=== PATIENT | female | born 1975 | race Caucasian/White ===

== ENCOUNTER 2023-08-27 15:43 | Emergency (ER) | payer OTHER, SELFPAY ==
[2023-08-27] VITALS (7 sets, daily range): BP systolic 161–193; BP diastolic 96–110; PULSE 86–102; RESP 16–18; TEMP 37.2; O2SAT 97–100; BMI 38.7
--- NOTE | 2023-08-27 15:59 | ED_ITS ---
HPI - General Adult General Chief complaint: Dizziness Stated complaint: dizzy/high blood press/sent fr urgent care Time Seen by Provider: 08/27/23 17:41 Source: patient Mode of arrival: ambulatory Limitations: no limitations History of Present Illness HPI narrative: Patient is a 48-year-old female who presents emergency department from urgent care today for evaluation. She reports for the past 3 days she has been feeling slightly dizzy described as being off balance. She noticed a mild increase in it today. Her ex- had presented to her home to picket labor union their child, he works in the medical field, she asked him to take her blood pressure and it was elevated 160/100. She has a remote history of hypertension reportedly 20 years ago due to a high stress job, was never medicated for this, ultimately left the job and never had issues with hypertension since then. She was last evaluated by primary care doctor 1.5-2 years ago and states no hypertension then. She denies fevers, chills, vision changes, neck pain, chest pain, shortness of breath, nausea vomiting, abdominal pain, numbness or tingling of the extremities, unsteady gait. Related Data Previous Rx's Medication Instructions Recorded amlodipine 5 mg tablet 5 mg PO DAILY #30 tabs 08/27/23 Allergies Allergy/AdvReac Type Severity Reaction Status Date / Time azithromycin Allergy Vomiting Verified 08/27/23 15:53 Penicillins [PCN] Allergy Hives Verified 08/27/23 15:53 Sulfa (Sulfonamide Allergy Hives Verified 08/27/23 15:53 Antibiotics) Review of Systems 2 Review of Systems: Yes all other systems are reviewed and are negative PMFSH Past Medical History Attestation statement: The following information was validated with the patient. Source: old records reviewed Social History Social History Alcohol intake: never Smoked in Last 30 Days: No Use of substances other than those prescribed or required for medical reasons: No Advance Directives: No Advance Directives Information Provided: Yes Physical Exam ED Vital Signs: Vital Signs - 24 hr 08/27/23 15:54 08/27/23 17:21 08/27/23 17:26 Temperature 98.9 F Pulse Rate 93 94 102 H Respiratory Rate 18 Blood Pressure 188/97 H 193/105 H 184/110 H Pulse Oximetry 100 Oxygen Delivery Method Room Air 08/27/23 17:28 08/27/23 18:00 08/27/23 19:50 Temperature Pulse Rate 98 86 90 Respiratory Rate 18 16 Blood Pressure 161/103 H 173/96 H 173/96 H Pulse Oximetry 97 97 Oxygen Delivery Method Room Air Room Air 08/27/23 20:00 Temperature Pulse Rate 93 Respiratory Rate Blood Pressure 180/103 H Pulse Oximetry 99 Oxygen Delivery Method BMI result Body Mass Index 38.7 Appearance: Alert.?Oriented to person, place and time. No acute distress.?Normal affect. Eyes: Pupils equal, round and reactive to light.? ENT: Pharynx normal.?? Neck: Normal inspection.? Neck supple.?? CVS: Heart sounds normal. Normal heart rate and rhythm.? Pulses normal.?? Respiratory: No respiratory distress.? Lung sounds clear to auscultation bilaterally?? Abdomen: Soft and non-tender. Normoactive bowel sounds. ? Skin: Skin warm and dry.? Normal skin color.? Extremities: No lower extremity edema.? No calf ttp? Neuro: Moves all extremities spontaneously. Sensation intact bilaterally. CN II- XII intact. No focal neuro deficits. Ambulates with normal steady gait. Course Course Course Narrative: RME: 48-year-old female presents to ED describing dizziness as off balance. Patient denies any stroke-like symptoms. Blood pressure 180/97. Patient denies any known history of high blood pressure. Patient states no chest pain or shortness of breath. Negative for any neuro deficits. NIH score is 0. Labs EKG ordered. Medications Administered Discontinued Medications Generic Name Dose Route Start Last Admin Trade Name Freq PRN Reason Stop Dose Admin Amlodipine Besylate 5 mg 08/27/23 17:52 08/27/23 18:17 Amlodipine Besylate 5 Mg Tablet PO 08/27/23 17:53 5 mg ONCE ONE Administration Protocol Sodium Chloride 1,000 mls @ 999 mls/hr 08/27/23 18:00 08/27/23 21:53 Ns IV 08/27/23 19:00 Infused .Q1H1M MALA Infusion Medical Decision Making Medical Decision Making [facility] Narrative: Patient is a 48-year-old female who presents emergency department for evaluation of dizziness and hypertension as per HPI. At the time my examination she appears overall well, nontoxic, afebrile. She is noted to be hypertensive and mildly tachycardic with pulse 95-110. She does have orthostatic hypertension notably from sitting to standing with a drop in SBP by 23 points and was symptomatic. She has not on any home medications that would cause orthostatic hypotension, telemetry without evidence of arrhythmias, EKG revealing normal sinus rhythm with ventricular rate of 83, QTC 425, no ST elevation, no ST depression, no evidence of arrhythmia or acute ischemic changes, clinically does not appear volume depleted, but she does admit that she has had decreased water intake recently. CBC and CMP are overall unremarkable, BNP within normal range, hCG negative. Will treat with 1 L normal saline IV fluid, in addition to amlodipine 5 mg orally for hypertension, disposition pending results. BP improved with amlodipine, after receiving fluids felt much better, dizziness has resolved. Ambulatory with a steady gait. Remains without focal neurological deficits. Stable for discharge home, sent prescription for amlodipine to pharmacy, outpatient follow-up with PCP. Discussed strict return precautions. All questions answered. Differential Diagnosis Differential Diagnoses: The differential diagnosis associated with the presentation includes (Orthostatic hypotension, arrhythmia, uncontrolled hypertension,, anemia, NIH stroke score 0 do not suspect posterior circulation stroke) Admission/Observation Consideration of admission/observation: Escalation of care including admission/observation considered (See narrative above in course narrative for further detail) Lab Data MDM Lab Attestation statement: I reviewed the patient's lab results. (See narrative above) 08/27/23 16:07 08/27/23 16:07 Labs: Lab Results 08/27/23 08/27/23 Range/Units 16:07 19:43 WBC 7.7 (4.8-10.8) X10*3/uL RBC 4.76 (4.20-5.50) X10*6/uL Hgb 13.4 (12.0-16.0) g/dl Hct 39.9 (37.0-47.0) % MCV 83.8 (80.0-98.0) fL MCH 28.2 (27.0-33.0) pg MCHC 33.6 (31.0-35.0) g/dl RDW 12.5 (11.0-16.0) % Plt Count 359 (160-400) X10*3/uL MPV 8.8 L (9.4-12.3) fL Immature Gran % (Auto) 0.1 (0.0-0.4) % Neut % (Auto) 66.8 (45-73) % Lymph % (Auto) 24.3 (20-40) % [place] % (Auto) 8.3 (2-11) % Eos % (Auto) 0.1 (0-4) % Baso % (Auto) 0.4 (0-2) % Lymph # (Auto) 1.9 (1.2-4.9) X10*3/uL [place] # (Auto) 0.6 (0.1-1.2) X10*3/uL Eos # (Auto) 0.0 (0.0-0.4) X10*3/uL Baso # (Auto) 0.0 (0.0-0.2) X10*3/uL Abs Immat Gran (auto) 0.01 (0.00-0.03) X10*3/uL Absolute Neuts (auto) 5.1 (2.0-8.3) x10*3/uL Absolute Nucleated RBC 0.000 (0.0-0.012) X10*3/uL Nucleated RBC % (auto) 0.0 (0.0-0.2) /100WBC PT 11.2 (11.1-13.3) SEC INR 0.9 (0.9-1.1) APTT 31.4 (26.0-36.8) SEC Sodium 140 (135-145) mmol/L Potassium 3.9 (3.3-5.1) mmol/L Chloride 106 (96-108) mmol/L Carbon Dioxide 24 (22-29) mmol/L Anion Gap 14 (12-20) BUN 14 (9-16) mg/dL Creatinine 0.84 (0.5-1.4) mg/dL Estim Creat Clear Calc 121.0 Estimated GFR > 60 Random Glucose 105 (60-115) mg/dL Calcium 9.4 (8.4-10.2) mg/dL Total Bilirubin 0.3 (0.0-1.0) mg/dL AST 18 (5-31) U/L ALT 17 (0-31) U/L Alkaline Phosphatase 90 (39-117) U/L Troponin I High Sens < 2.7 (<3.5-17.0) ng/L B-Natriuretic Peptide 11 (<100) pg/mL Total Protein 7.3 (6.5-8.0) g/dL Albumin 4.3 (3.5-5.0) g/dL Beta HCG, Quant < 2 mIU/mL Urine Color Yellow Urine Appearance Cloudy Urine pH 6.5 (5.0-9.0) Ur Specific [place] 1.010 (1.005-1.025) Urine Protein Negative (Neg-Trace) mg/dL Urine Glucose (UA) Negative (Negative) mg/dL Urine Ketones Negative (Negative) mg/dL Urine Blood Large (3+) H (Negative) Urine Nitrite Negative (Negative) Ur Leukocyte Esterase Trace H (Negative) Urine RBC 11-20 H (0-2) /HPF Urine WBC 0-5 (0-5) /HPF Ur Squamous Epith Cells 6-10 (0-2) /HPF Urine Bacteria 1+ (None Seen) Hyaline Casts 0-2 (0-2) /LPF Urine Test NEGATIVE (NEGATIVE) Independent Interpretation I performed an independent interpretation of an: EKG (See narrative above) Prescription Management I considered prescription management with: Other (Antihypertensive) Critical Care Time Critical Care Time Critical Care Time: Yes Total Critical Care Time: 40 Attestation: I personally attest to this critical care time spent taking care of the patient exclusive of all other billable procedures was approximately 40 minutes including initial evaluation of patient, ordering tests, EKG interpretation, medical consultation, documentation, re-evaluation. Discharge Plan Discharge Clinical Impression: Hypertension Patient Disposition: Home, Self-Care Instructions: Heart Healthy Diet (ED), Hypertension (ED) Additional Instructions: A new prescription for amlodipine, blood pressure medication was sent to your pharmacy. Begin taking this tomorrow as you received the 1st dose while in the emergency department. You should purchase a automated blood pressure cuff to the you can monitor blood pressure readings at home and present these to your new primary care provider. You may return back to emergency department any new or worsening symptoms or concerns. Please be sure to change position slowly, stay well hydrated, and follow a heart healthy diet. Prescriptions: New amlodipine 5 mg tablet 5 mg PO DAILY Qty: 30 0RF Referrals: Rocío Pop PA [Primary Care Provider] - Interventions: ED Discharge Assessment Last Done: 08/27/23 22:01 Discharge Date/Time: 08/27/23 22:03
--- NOTE | 2023-08-27 16:00 | ECG_ITS ---
Test Reason : DIZZINESS Blood Pressure : / mmHG Vent. Rate : 083 BPM Atrial Rate : 083 BPM P-R Int : 140 ms QRS Dur : 080 ms QT Int : 362 ms P-R-T Axes : 035 023 036 degrees QTc Int : 425 ms Normal sinus rhythm Normal ECG When compared with ECG of 14-MAR-2009 16:39, No significant change was found Referred By: Trevon Cano Electronically Signed By:PAULY BROUSSARD MD
[2023-08-27 16:21] LABS: MANUAL DIFF FLAG NO
[2023-08-27 16:25] LABS: Basophils Percent Auto 0.4 % (0-2); Eosinophils Percent Auto 0.1 % (0-4); Hematocrit 39.9 % (37.0-47.0); Hemoglobin 13.4 g/dl (12.0-16.0); Imm Gran Abs Auto 0.01 X10*3/uL (0.00-0.03); Imm Gran Pct Auto 0.1 % (0.0-0.4); Lymphocytes Absolute Auto 1.9 X10*3/uL (1.2-4.9); Lymphocytes Percent Auto 24.3 % (20-40); Mean Corpuscular HGB Conc 33.6 g/dl (31.0-35.0); Mean Corpuscular Hemoglobin 28.2 pg (27.0-33.0); Mean Corpuscular Volume 83.8 fL (80.0-98.0); Mean Platelet Volume 8.8 fL (9.4-12.3); Monocytes Absolute Auto 0.6 X10*3/uL (0.1-1.2); Monocytes Percent Auto 8.3 % (2-11); Neutrophils Absolute Auto 5.1 x10*3/uL (2.0-8.3); Neutrophils Percent Auto 66.8 % (45-73); Platelet Count 359 X10*3/uL (160-400); Red Blood Count 4.76 X10*6/uL (4.20-5.50); Red Cell Distribution Width 12.5 % (11.0-16.0); White Blood Count 7.7 X10*3/uL (4.8-10.8)
[2023-08-27 16:31] LABS: INTERNATIONAL NORM RATIO 0.9 (0.9-1.1); Prothrombin Time 11.2 SEC (11.1-13.3)
[2023-08-27 16:33] LABS: Partial Thromboplastin Time 31.4 SEC (26.0-36.8)
[2023-08-27 16:46] LABS: B Type Natriuretic Peptide 11 pg/mL (<100)
[2023-08-27 16:47] LABS: Alanine Aminotransferase 17 U/L (0-31); Albumin Level 4.3 g/dL (3.5-5.0); Alkaline Phosphatase 90 U/L (39-117); Anion Gap 14 (12-20); Aspartate Amino Transferase 18 U/L (5-31); Bilirubin Total 0.3 mg/dL (0.0-1.0); Blood Urea Nitrogen 14 mg/dL (9-16); Calcium 9.4 mg/dL (8.4-10.2); Carbon Dioxide 24 mmol/L (22-29); Chloride 106 mmol/L (96-108); Estimated Glomerular Filt Rate > 60; Glucose Random 105 mg/dL (60-115); Potassium 3.9 mmol/L (3.3-5.1); Sodium 140 mmol/L (135-145); Total Protein 7.3 g/dL (6.5-8.0)
[2023-08-27 16:49] LABS: HCG Quantitative < 2 mIU/mL; Troponin-I High Sensitivity < 2.7 ng/L (<3.5-17.0)
[2023-08-27] MEDS: amLODIPine Besylate 5 MG TABLET PO (18:17)
[2023-08-27] MEDS: 0.9 % Sodium Chloride 1,000 ML 999 ML IV (18:21)
[2023-08-27 19:59] LABS: Urine Pregnancy NEGATIVE (NEGATIVE)
[2023-08-27 20:00] LABS: Appearance Urine Cloudy; Color Urine Yellow; Glucose Urine UA Negative (Negative); Leukocyte Esterase Urine Trace (Negative); Nitrite Urine Negative (Negative); PH 6.5 (5.0-9.0); UMIC TRIGGER UACC YES; UPreg QC Valid YES; Urine Blood Large (3+) (Negative); Urine Ketones Negative (Negative); Urine Protein Negative (Neg-Trace)
[2023-08-27 20:16] LABS: Bacteria Urine 1+ (None Seen); Hyaline Casts Urine 0-2 /LPF (0-2); WBC Urine 0-5 /HPF (0-5)
--- NOTE | 2023-08-27 22:02 | PC.NURSE ---
SHIRLENE Ewing aware of last VS before discharge. 180/103. NO further orders, continue with discharge.
== END 2023-08-27 22:03 | disposition home or self-care (01) ==
PROVIDERS: Physician Assistant; Emergency Provider Emergency Medicine Emergency Medical Services; PCP Physician Assistant
DX: R42 Dizziness and giddiness (principal); I10 Essential (primary) hypertension; Z79.899 Other long term (current) drug therapy
CPT/HCPCS: 36415; 80053; 81001; 81025; 83880; 84484; 84702; 85025; 85610; 85730; 93005; 96360; 96361; 99285

== ENCOUNTER → 2023-08-27 16:00 | Outpatient (BNV) | payer OTHER, SELFPAY | PROVIDERS: Emergency Provider Emergency Medicine Emergency Medical Services; PCP Physician Assistant; Visit Provider Internal Medicine Cardiovascular Disease | DX: R42 Dizziness and giddiness (principal) | CPT/HCPCS: 93010 ==

== ENCOUNTER 2023-11-02 14:33 | Inpatient (IN) | payer OTHER, SELFPAY ==
[2023-11-02] VITALS (10 sets, daily range): BP systolic 129–178; BP diastolic 76–100; PULSE 89–110; RESP 12–20; TEMP 37.3–37.4; O2SAT 82–95; BMI 36.3
--- NOTE | ~2023-11-02 | XR_ITS ---
EXAMINATION: XR CHEST CLINICAL INFORMATION: SOB, cough COMPARISON: Chest radiograph 03/14/2009 TECHNIQUE: 2 views of the chest were obtained. FINDINGS: The lungs are well expanded. Right lower lobe consolidation. Small right pleural effusion is possible. The left lung is clear. No pulmonary edema or pneumothorax. Cardiomediastinal silhouette is within normal limits for technique. No acute osseous abnormality. XR/XR chest 2V IMPRESSION: Right lower lobe consolidation, suspicious for lobar pneumonia.
--- NOTE | 2023-11-02 14:48 | ED.GENADULT ---
HPI - General Adult General Chief complaint: Dyspnea Stated complaint: sob Time Seen by Provider: 11/02/23 16:14 Source: patient, RN notes reviewed and old records reviewed Mode of arrival: ambulatory Limitations: no limitations History of Present Illness HPI narrative: 48-year-old female past medical history significant for hypertension presents for evaluation of flu-like symptoms. Patient reports that she started about a week ago feeling unwell. She then developed a cough and has had fevers. She reports her fevers have resolved However now she feels short of breath especially with exertion She is coughing persistently She states that she feels ?like I can hear some junk on the right side of my chest. ? She has a nonsmoker Related Data Previous Rx's ?Medication ?Instructions ?Recorded amlodipine 5 mg tablet 5 mg PO DAILY #30 tabs 08/27/23 Allergies Allergy/AdvReac Type Severity Reaction Status Date / Time azithromycin Allergy Vomiting Verified 11/02/23 14:53 Penicillins [PCN] Allergy Hives Verified 11/02/23 14:53 Sulfa (Sulfonamide Allergy Hives Verified 11/02/23 14:53 Antibiotics) Review of Systems Constitutional: Constitutional: Reports body ache(s), Reports chills, Denies fever(s), Reports malaise and Reports weakness Eyes: Eyes: Denies blurry vision Cardiovascular: Cardiovascular: Denies chest pain, Reports dyspnea and Reports dyspnea on exertion Respiratory: Respiratory: Reports cough, Reports dyspnea and Reports dyspnea on exertion Gastrointestinal: Gastrointestinal: Denies abdominal pain, Denies nausea and Denies vomiting Musculoskeletal: Musculoskeletal: Denies back pain Integumentary/Breasts: Skin/Breast: Denies rash Neurologic: Reports weakness PMFSH Social History Social History Alcohol intake: never Smoked in Last 30 Days: No Use of substances other than those prescribed or required for medical reasons: No Advance Directives: No Advance Directives Information Provided: No Do you have a plan to hurt others: No Plan Patient : No Physical Exam ED Vital Signs: Vital Signs - 24 hr 11/02/23 14:42 11/02/23 15:05 11/02/23 15:46 Temperature 99.1 F Pulse Rate 110 H 100 97 Respiratory Rate 20 20 18 Blood Pressure 178/100 H 147/91 H 141/82 H Pulse Oximetry 91 L 94 92 Oxygen Delivery Method Room Air Room Air Room Air 11/02/23 16:28 11/02/23 17:03 11/02/23 18:02 Temperature 99.2 F Pulse Rate 90 94 Respiratory Rate 16 19 Blood Pressure 129/77 Pulse Oximetry 95 82 L Oxygen Delivery Method Room Air BMI result Body Mass Index 36.3 Const General: healthy appearing, comfortable, no acute distress, alert and awake Nutritional Appearance: well nourished Orientation/consciousness: patient oriented x3 HENMT Head: Yes normocephalic and Yes atraumatic Eyes Eyelids: Yes eyelids normal Conjunctivae: conjunctivae normal Sclerae: sclerae normal Corneas: corneas normal Pupils: Equal, round and reactive pupils present EOM: EOMs intact bilaterally Neck Neck: Yes full ROM Resp Other: Right lower lobe rhonchi Effort & Inspection: normal respiratory effort, able to speak in complete sentences and not labored GI Inspection: No distended Palpation (GI): Soft to palpation, not firm, nontender, no guarding and not rigid Skin General skin exam: elasticity normal Neuro General: patient oriented x3 Cranial nerves: Yes Equal, round and reactive pupils present and Yes Bilaterally intact EOM present Cognition (Neuro): normal cognition Extrem Other: Moving all extremities well without any obvious deformities Course Course Course Narrative: RME performed by Aby Balderrama PA-C. Patient is a 48 year old assigned female at presenting to the emergency department with a cough and sore throat. Detailed physical exam and review of systems are deferred to the cardio clinician. Imaging and swabs ordered. Patient placed back in the waiting room pending room availability and results. Medications Administered Discontinued Medications Generic Name Dose Route Start Last Admin Trade Name Freq PRN Reason Stop Dose Admin Albuterol Sulfate 2.5 mg/ 0 mg 11/02/23 17:00 11/02/23 17:02 Albuterol/Ipratropium 3 ml INHALE 11/02/23 17:01 1 dose ONCE ONE Administration Sodium Chloride 1,000 mls @ 999 mls/hr 11/02/23 16:30 11/02/23 16:52 Ns IV 11/02/23 17:30 999 mls/hr .Q1H1M MALA Administration Ceftriaxone Sodium 1 gm/ 50 mls @ 100 mls/hr 11/02/23 16:29 11/02/23 17:27 Sodium Chloride IV 11/02/23 16:58 Infused ONCE ONE Infusion Doxycycline Hyclate 100 mg/ 250 mls @ 166.67 mls/hr 11/02/23 16:30 11/02/23 17:27 Sodium Chloride IV 11/02/23 17:59 166.67 mls/hr ONCE ONE Administration Medical Decision Making Medical Decision Making [facility] Narrative: 58-year-old female with past medical history significant for hypertension presents for evaluation of cough shortness of breath, body aches. Her chest x-ray shows a significant right lower lobe pneumonia. Her oxygen saturations have been 92% or better since arrival. She did have a temperature of 99.9?. She is not tachycardic. Plan to check basic labs. We will treat with ceftriaxone and doxycycline given azithromycin allergy. Patient would like to be discharged home. Given that she has not hypoxic, after her antibiotics have completed an is long as there was no significant abnormalities on her labs we will take her for an ambulation trial with oxygen saturation monitoring Differential Diagnosis Differential Diagnoses: The differential diagnosis associated with the presentation includes Community-acquired pneumonia Influenza Viral syndrome Upper respiratory infection Admission/Observation Consideration of admission/observation: Escalation of care including admission/observation considered Consider admission for right lower lobe pneumonia Lab Data [facility] Lab Attestation statement: I reviewed the patient's lab results. No leukocytosis. The patient has no significant anemia. Her potassium is just below normal at 3.2, no other electrolyte abnormalities. Glucose is slightly elevated to 164, but this is a random sample. There is no evidence of DKA. 11/02/23 16:46 11/02/23 16:46 Labs: Lab Results 11/02/23 11/02/23 Range/Units 15:13 16:46 WBC 6.0 (4.8-10.8) X10*3/uL RBC 4.56 (4.20-5.50) X10*6/uL Hgb 12.5 (12.0-16.0) g/dl Hct 36.9 L (37.0-47.0) % MCV 80.9 (80.0-98.0) fL MCH 27.4 (27.0-33.0) pg MCHC 33.9 (31.0-35.0) g/dl RDW 12.3 (11.0-16.0) % Plt Count 326 (160-400) X10*3/uL MPV 8.4 L (9.4-12.3) fL Immature Gran % (Auto) 0.3 (0.0-0.4) % Neut % (Auto) 66.5 (45-73) % Lymph % (Auto) 20.2 (20-40) % [place] % (Auto) 11.9 H (2-11) % Eos % (Auto) 0.8 (0-4) % Baso % (Auto) 0.3 (0-2) % Lymph # (Auto) 1.2 (1.2-4.9) X10*3/uL [place] # (Auto) 0.7 (0.1-1.2) X10*3/uL Eos # (Auto) 0.1 (0.0-0.4) X10*3/uL Baso # (Auto) 0.0 (0.0-0.2) X10*3/uL Abs Immat Gran (auto) 0.02 (0.00-0.03) X10*3/uL Absolute Neuts (auto) 4.0 (2.0-8.3) x10*3/uL Absolute Nucleated RBC 0.000 (0.0-0.012) X10*3/uL Nucleated RBC % (auto) 0.0 (0.0-0.2) /100WBC Sodium 138 (135-145) mmol/L Potassium 3.2 L (3.3-5.1) mmol/L Chloride 98 (96-108) mmol/L Carbon Dioxide 28 (22-29) mmol/L Anion Gap 15 (12-20) BUN 10 (9-16) mg/dL Creatinine 0.76 (0.5-1.4) mg/dL Estim Creat Clear Calc 125.3 Estimated GFR > 60 Random Glucose 164 H (60-115) mg/dL Lactic Acid 1.0 (0.5-2.0) mmol/L Calcium 8.9 (8.4-10.2) mg/dL Total Bilirubin 0.4 (0.0-1.0) mg/dL AST 51 H (5-31) U/L ALT 62 H (0-31) U/L Alkaline Phosphatase 109 (39-117) U/L Total Protein 7.0 (6.5-8.0) g/dL Albumin 3.9 (3.5-5.0) g/dL Lipase 21 (8-78) U/L Influenza Type A (PCR) NEGATIVE (Negative) Influenza Type B (PCR) NEGATIVE (Negative) RSV RNA Qual (PCR) NEGATIVE (Negative) SARS-CoV-2 RNA (RT-PCR) NEGATIVE (Negative) S. pyogenes GrpA IVAN Negative (Negative) Independent Interpretation I performed an independent interpretation of an: Plain X-Ray (Significant right lower lobe consolidation suspicious for pneumonia) Radiology Impression Discussion of test interpretation with radiology: I have reviewed the radiologist's reading. Radiologist Impression: IMPRESSION: Right lower lobe consolidation, suspicious for lobar pneumonia. Discharge Plan Discharge Clinical Impression: Community acquired pneumonia Patient Disposition: Admitted As Inpatient Prescriptions: No Action amlodipine 5 mg tablet 5 mg PO DAILY Qty: 30 0RF Print Language: Mac[place]
--- NOTE | 2023-11-02 15:15 | PC.NURSE ---
swabs obtained/sent to lab by tech.
[2023-11-02 15:27] LABS: IDNOW Serial# 08D9AD1C; Strep A Nucleic Acid Negative (Negative)
--- NOTE | 2023-11-02 15:35 | PC.NURSE ---
pt to xray at this time.
[2023-11-02 15:58] LABS: Influenza A PCR NEGATIVE (Negative); Influenza B PCR NEGATIVE (Negative); Resp Syncy Virus RNA Qual PCR NEGATIVE (Negative); SARS COV2 PCR INHOUSE NEGATIVE (Negative)
[2023-11-02] MEDS: cefTRIAXone sodium 1 GM in 0.9 % Sodium Chloride 50 ML IV (16:51)
[2023-11-02 16:52] LABS: MANUAL DIFF FLAG NO
[2023-11-02] MEDS: 0.9 % Sodium Chloride 1,000 ML 999 ML IV (16:52)
[2023-11-02 16:58] LABS: Basophils Percent Auto 0.3 % (0-2); Eosinophils Absolute Auto 0.1 X10*3/uL (0.0-0.4); Eosinophils Percent Auto 0.8 % (0-4); Hematocrit 36.9 % (37.0-47.0); Hemoglobin 12.5 g/dl (12.0-16.0); Imm Gran Abs Auto 0.02 X10*3/uL (0.00-0.03); Imm Gran Pct Auto 0.3 % (0.0-0.4); Lymphocytes Absolute Auto 1.2 X10*3/uL (1.2-4.9); Lymphocytes Percent Auto 20.2 % (20-40); Mean Corpuscular HGB Conc 33.9 g/dl (31.0-35.0); Mean Corpuscular Hemoglobin 27.4 pg (27.0-33.0); Mean Corpuscular Volume 80.9 fL (80.0-98.0); Mean Platelet Volume 8.4 fL (9.4-12.3); Monocytes Absolute Auto 0.7 X10*3/uL (0.1-1.2); Monocytes Percent Auto 11.9 % (2-11); Neutrophils Percent Auto 66.5 % (45-73); Platelet Count 326 X10*3/uL (160-400); Red Blood Count 4.56 X10*6/uL (4.20-5.50); Red Cell Distribution Width 12.3 % (11.0-16.0)
[2023-11-02] MEDS: Albuterol Sulfate 2.5 MG, Albuterol/Iprat 2.5/0.5MG 3 ML 3 ML INHALE (17:02)
[2023-11-02 17:12] LABS: Alanine Aminotransferase 62 U/L (0-31); Albumin Level 3.9 g/dL (3.5-5.0); Alkaline Phosphatase 109 U/L (39-117); Anion Gap 15 (12-20); Aspartate Amino Transferase 51 U/L (5-31); Bilirubin Total 0.4 mg/dL (0.0-1.0); Blood Urea Nitrogen 10 mg/dL (9-16); Calcium 8.9 mg/dL (8.4-10.2); Carbon Dioxide 28 mmol/L (22-29); Chloride 98 mmol/L (96-108); Creatinine Clr Calc Pharmacy 125.3; Estimated Glomerular Filt Rate > 60; Glucose Random 164 mg/dL (60-115); Lipase 21 U/L (8-78); Potassium 3.2 mmol/L (3.3-5.1); Sodium 138 mmol/L (135-145)
[2023-11-02] MEDS: Doxycycline Hyclate 100 MG in 0.9 % Sodium Chloride 250 ML 166.67 MG IV (17:27)
--- NOTE | 2023-11-02 18:02 | PC.NURSE ---
o2 sats 82-84% on RA when ambulating. pt denied difficulty ambulating and appeared well while ambulating. sats up to 91-93% on RA upon sitting and now 95% on RA. Brendan GARBER aware.
--- NOTE | 2023-11-02 18:13 | PM.IMHP ---
History of Present Illness Date of Service: 11/02/23 Attending physician on admission: Lashonda Simon Chief Complaint: sob 48 year old female with history of htn presented to the ED earlier today for evaluation of dyspnea. The patient reports 1 week ago developed onset of fevers up to 102 with chills, malaise, fatigue, myalgias, and anorexia. States her son was sick with similar symptoms. States symptoms improved about 2 days ago but then developed cough with yellow sputum production and dyspnea on exertion so presented to the ED for further evaluation. On arrival, vital signs stable though initially tachycardic to 110. No hypoxia on room air but with exertion, desaturates 82% on room air. There is no leukocytosis. Renal function electrolyte levels normal except for mild hypokalemia of 3.2. She is negative for COVID-19, RSV, influenza, and strep a. Chest x-ray shows right lower lobe pneumonia. In the ED, has been treated with IV ceftriaxone, doxycycline. She will be admitted for further management of community-acquired pneumonia with exercise hypoxemia. Review of Systems Review of Systems: General: +fever, +malaise, +chills. No unintentional weight loss HEENT: No blurred vision, diplopia. No sore throat, nasal congestion, rhinorrhea, sinus pain, ear pain Cardiovascular: No chest pain, palpitations, or leg edema Respiratory: +cough, +[place]. No wheezing GI: No abdominal pain, nausea, vomiting, diarrhea, constipation, melena, hematochezia : No dysuria, hematuria, increased urinary frequency, decreased urinary output MSK: +myalgia. No back pain Neuro: No headaches, weakness, paresthesias Skin: No rashes or lesions REPLACED BY [facility] Medical History (Updated 11/02/23 @ 18:48 by SHIRLENE Gaspar) Hypertension Social History Alcohol intake: never Smoked in Last 30 Days: No Use of substances other than those prescribed or required for medical reasons: No Advance Directives: No Advance Directives Information Provided: No Do you have a plan to hurt others: No Plan Patient : No Meds Allergies Allergy/AdvReac Type Severity Reaction Status Date / Time azithromycin Allergy Vomiting Verified 11/02/23 14:53 Penicillins [PCN] Allergy Hives Verified 11/02/23 14:53 Sulfa (Sulfonamide Allergy Hives Verified 11/02/23 14:53 Antibiotics) Physical Exam Vital Signs and Narrative: Vital Signs: Last Vital Signs Temp 99.2 F 11/02/23 16:28 Pulse 94 11/02/23 17:03 Resp 19 11/02/23 17:03 BP 129/77 11/02/23 16:28 Pulse Ox 82 L 11/02/23 18:02 O2 Del Method Room Air 11/02/23 16:28 BMI result Body Mass Index 36.3 Constitutional - Awake and Alert, No apparent distress Eyes - PERRLA, EOMI Cardiovascular - S1S2, RRR, No edema Respiratory - Normal lung expansion, Normal respiratory effort, No respiratory distress, diminished RLL, otherwise cta Gastrointestinal - NT / ND; +BS; No rebound or guarding Extremities - no calf tenderness bilaterally, no swelling Skin - Warm/Dry Neurological - Alert & oriented x3 Psychological - Appropriate affect Results Labs 11/02/23 16:46 11/02/23 16:46 Labs: Laboratory Results - last 24 hr 11/02/23 11/02/23 15:13 16:46 MCV 80.9 MCH 27.4 MCHC 33.9 RDW 12.3 Plt Count 326 MPV 8.4 L Immature Gran % (Auto) 0.3 Neut % (Auto) 66.5 Lymph % (Auto) 20.2 [place] % (Auto) 11.9 H Eos % (Auto) 0.8 Baso % (Auto) 0.3 Lymph # (Auto) 1.2 [place] # (Auto) 0.7 Eos # (Auto) 0.1 Baso # (Auto) 0.0 Abs Immat Gran (auto) 0.02 Absolute Neuts (auto) 4.0 Absolute Nucleated RBC 0.000 Nucleated RBC % (auto) 0.0 Anion Gap 15 Estim Creat Clear Calc 125.3 Estimated GFR > 60 Random Glucose 164 H Lactic Acid 1.0 Calcium 8.9 Total Bilirubin 0.4 AST 51 H ALT 62 H Alkaline Phosphatase 109 Total Protein 7.0 Albumin 3.9 Lipase 21 Influenza Type A (PCR) NEGATIVE Influenza Type B (PCR) NEGATIVE RSV RNA Qual (PCR) NEGATIVE SARS-CoV-2 RNA (RT-PCR) NEGATIVE S. pyogenes GrpA IVAN Negative Imaging Radiologist's Impressions: Impressions Chest X-Ray 11/02/23 15:42 IMPRESSION: Right lower lobe consolidation, suspicious for lobar pneumonia. Assessment and Plan (1) Community acquired pneumonia: Status: Acute Plan 48 year old female with history of htn admitted for further management of community acquired pneumonia with exercise hypoxemia #RLL pneumonia with exercise hypoxemia -cxr shows RLL consolidation. No leukocytosis, no sepsis -iv ctx and doxycyline (initiated 11/01) -check strep pneumo ag, legionella ag, sputum culture, hiv ab (given pneumonia in otherwise healthy young person) -symptomatic management -monitor for hypoxia -admit to med surg #htn -continue amlodipine dvt prophylaxis- lovenox full code given expercise hypoxemia related to RLL pneumonia, pt will require inpt stay at least 2 midnights for iv abx and close monitoring or vital signs Quality Stroke Does the patient have a stroke diagnosis?: No VTE Prior VTE?: No VTE Risk Level:: Medical - moderate - high VTE Device Contraindication: Treatment Not Indicated VTE Drug Contraindication: N/A - Med Ordered
--- NOTE | 2023-11-02 18:51 | PHA.MEDREC ---
Pharmacy Consult ? Medication Reconciliation Pharmacy has completed the medication reconciliation. spoke with patient to confirm.
[2023-11-02] MEDS: Potassium Chloride Packet 20 MEQ PACKET 40 MEQ PO (20:11)
[2023-11-02] MEDS: amLODIPine Besylate 5 MG TABLET PO (20:11)
[2023-11-03 01:15] VITALS: PULSE 82; RESP 17; O2SAT 95
[2023-11-03] MEDS: 0.9 % Sodium Chloride Flush 3 ML SYRINGE IVFLUSH ×4 (01:43→23:40)
[2023-11-03 01:44] VITALS: BMI 37.3
[2023-11-03 01:47] VITALS: BP 145/80; PULSE 91; RESP 20; TEMP 36.4; O2SAT 93
[2023-11-03] MEDS: Doxycycline Hyclate 100 MG in 0.9 % Sodium Chloride 250 ML 166.67 MG IV ×2 (06:25→17:20)
[2023-11-03 06:49] LABS: MANUAL DIFF FLAG NO
[2023-11-03 07:11] LABS: Anion Gap 13 (12-20); Blood Urea Nitrogen 7 mg/dL (9-16); Calcium 8.9 mg/dL (8.4-10.2); Carbon Dioxide 27 mmol/L (22-29); Chloride 104 mmol/L (96-108); Estimated Glomerular Filt Rate > 60; Glucose Random 107 mg/dL (60-115); Potassium 3.7 mmol/L (3.3-5.1); Sodium 140 mmol/L (135-145)
[2023-11-03 07:12] LABS: Basophils Percent Auto 0.3 % (0-2); Eosinophils Absolute Auto 0.1 X10*3/uL (0.0-0.4); Hematocrit 35.6 % (37.0-47.0); Imm Gran Abs Auto 0.04 X10*3/uL (0.00-0.03); Imm Gran Pct Auto 0.6 % (0.0-0.4); Lymphocytes Absolute Auto 1.6 X10*3/uL (1.2-4.9); Lymphocytes Percent Auto 25.7 % (20-40); Mean Corpuscular HGB Conc 33.7 g/dl (31.0-35.0); Mean Corpuscular Hemoglobin 27.7 pg (27.0-33.0); Mean Corpuscular Volume 82.2 fL (80.0-98.0); Mean Platelet Volume 8.7 fL (9.4-12.3); Monocytes Absolute Auto 0.9 X10*3/uL (0.1-1.2); Monocytes Percent Auto 13.6 % (2-11); Neutrophils Absolute Auto 3.7 x10*3/uL (2.0-8.3); Neutrophils Percent Auto 58.8 % (45-73); Platelet Count 355 X10*3/uL (160-400); Red Blood Count 4.33 X10*6/uL (4.20-5.50); Red Cell Distribution Width 12.4 % (11.0-16.0); White Blood Count 6.2 X10*3/uL (4.8-10.8)
[2023-11-03 07:22] VITALS: BP 133/74; PULSE 87; RESP 16; TEMP 36.6; O2SAT 93
[2023-11-03 08:35] LABS: Procalcitonin 0.04 ng/mL
--- NOTE | 2023-11-03 10:37 | MHC.CM.PN ---
Pt is independent, no home health services. She has a new PCP appt with Roscoe Mansfield in December. She will complete HCP form here, naming her sister. She is able to arrange transport at [place]. DC plan is home, self care.
--- NOTE | 2023-11-03 10:53 | HO.PM.IMPN ---
Subjective Subjective Date of Service: 11/03/23 Interval History: no fever overnight coughing short of breath Review of Systems Review of Systems: Yes all other systems are reviewed and are negative Physical Exam Vital Signs: Vital Signs: Last Vital Signs Temp 97.8 F 11/03/23 07:22 Pulse 87 11/03/23 07:22 Resp 16 11/03/23 07:22 BP 133/74 11/03/23 07:22 Pulse Ox 93 11/03/23 07:22 O2 Del Method Room Air 11/03/23 07:22 BMI result Body Mass Index 37.3 Gen: in no acute distress HEENT: sclera anicteric, moist mucus membranes Neck: supple Lungs: diminished R with a few insp crackles Heart: regular rate and rhythm, no murmurs Abd: soft, non-tender, non-distended Ext: no edema Skin: warm/well-perfused Neuro: alert and oriented x3, no focal findings Psych: appropriate affect Objective Data Active Medications Acetaminophen (Acetaminophen 325 Mg Tablet) 650 mg PO Q6H PRN PRN Reason: Pain, Mild (Pain Scale 1-3) Amlodipine Besylate (Amlodipine Besylate 5 Mg Tablet) 5 mg PO DAILY@1700 MALA; Protocol Last Admin: 11/02/23 20:11 Dose: 5 mg Documented By: CHINA Enoxaparin Sodium (Enoxaparin Sodium 40 Mg/0.4 Ml Syringe) 40 mg SUBCUT Q24H [facility] Last Admin: 11/02/23 19:26 Dose: Not Given Documented By: CHINA Non-Admin Reason: Patient Refused Guaifenesin (Guaifenesin 200 Mg/10 Ml 10 Ml Liquid) 10 ml PO Q4H PRN PRN Reason: Cough Ceftriaxone Sodium 1 gm/ (Sodium Chloride) 50 mls @ 100 mls/hr IV Q24H MALA Doxycycline Hyclate 100 mg/ (Sodium Chloride) 250 mls @ 166.67 mls/hr IV Q12H [facility] Last Infusion: 11/03/23 09:15 Dose: Infused Documented By: SHARAN Ondansetron HCl (Ondansetron Hcl 4 Mg/2 Ml Vial) 4 mg IVPUSH Q8H PRN PRN Reason: Nausea and Vomiting Senna (Sennosides 8.6 Mg Tablet) 17.2 mg PO BEDTIME PRN PRN Reason: Constipation Sodium Chloride (0.9 % Sodium Chloride Flush 3 Ml Syringe) 3 ml IVFLUSH QSHIFT [facility] Last Admin: 11/03/23 09:13 Dose: 3 ml Documented By: SHARAN Labs 11/03/23 06:33 11/03/23 06:33 Labs: Laboratory Results - last 24 hr 11/02/23 11/02/23 11/03/23 15:13 16:46 06:33 MCV 80.9 82.2 MCH 27.4 27.7 MCHC 33.9 33.7 RDW 12.3 12.4 Plt Count 326 355 MPV 8.4 L 8.7 L Immature Gran % (Auto) 0.3 0.6 H Neut % (Auto) 66.5 58.8 Lymph % (Auto) 20.2 25.7 [place] % (Auto) 11.9 H 13.6 H Eos % (Auto) 0.8 1.0 Baso % (Auto) 0.3 0.3 Lymph # (Auto) 1.2 1.6 [place] # (Auto) 0.7 0.9 Eos # (Auto) 0.1 0.1 Baso # (Auto) 0.0 0.0 Abs Immat Gran (auto) 0.02 0.04 H Absolute Neuts (auto) 4.0 3.7 Absolute Nucleated RBC 0.000 0.000 Nucleated RBC % (auto) 0.0 0.0 Anion Gap 15 13 Estim Creat Clear Calc 125.3 151.0 Estimated GFR > 60 > 60 Random Glucose 164 H 107 Lactic Acid 1.0 Calcium 8.9 8.9 Total Bilirubin 0.4 AST 51 H ALT 62 H Alkaline Phosphatase 109 Total Protein 7.0 Albumin 3.9 Lipase 21 Procalcitonin 0.04 Influenza Type A (PCR) NEGATIVE Influenza Type B (PCR) NEGATIVE RSV RNA Qual (PCR) NEGATIVE SARS-CoV-2 RNA (RT-PCR) NEGATIVE S. pyogenes GrpA IVAN Negative Assessment and Plan (1) Community acquired pneumonia: Status: Acute Plan d2 48yo F with HTN presenting with post-URI pneumonia, exertional hypoxia RLL pneumonia - 11/01- ceftriaxone + doxycycline, urine antigens + BCx + sputum Cx + HIV pending - monitor for hypoxia HTN - amlodipine VTE ppx - LMWH dispo - likely home tomorrow In my clinical judgment, the patient requires continued inpatient hospitalization for the following reasons: IV ABX Total time managing care of this patient today: 35 minutes. Quality Stroke Does the patient have a stroke diagnosis?: No VTE Prior VTE?: No VTE Risk Level:: Medical - moderate - high VTE Device Contraindication: Treatment Not Indicated VTE Drug Contraindication: N/A - Med Ordered
[2023-11-03 15:37] VITALS: BP 135/78; PULSE 88; RESP 16; TEMP 37.2; O2SAT 93
[2023-11-03 16:29] VITALS: BP 135/78
[2023-11-03] MEDS: amLODIPine Besylate 5 MG TABLET PO (16:29)
[2023-11-03] MEDS: cefTRIAXone sodium 1 GM in 0.9 % Sodium Chloride 50 ML IV (16:29)
[2023-11-03] MEDS: Enoxaparin Sodium 40 MG/0.4 ML SYRINGE SUBCUT (17:20)
[2023-11-03 23:45] VITALS: BP 144/78; PULSE 89; RESP 16; TEMP 36.3; O2SAT 93
[2023-11-04] MEDS: Acetaminophen 325 MG TABLET 650 MG PO (05:40)
[2023-11-04] MEDS: Doxycycline Hyclate 100 MG in 0.9 % Sodium Chloride 250 ML 166.7 MG IV (05:40)
[2023-11-04] MEDS: guaiFENesin 200 MG/10 ML 10 ML LIQUID PO ×2 (05:42→14:00)
[2023-11-04 07:21] VITALS: BP 138/85; PULSE 80; RESP 18; TEMP 36.3; O2SAT 92
[2023-11-04] MEDS: cefuroxime axetiL 500 MG TABLET PO (09:05)
[2023-11-04 09:42] VITALS: PULSE 112; PULSE 92; O2SAT 93; O2SAT 94
--- NOTE | 2023-11-04 11:20 | PM.DS ---
DS: Providers Provider Date of Service: 11/04/23 Date of admission: 11/02/23 18:26 Date of discharge: 11/04/23 Primary care physician: None Physician DS: Diagnosis Discharge Diagnosis (1) Community acquired pneumonia: Status: Acute DS: Summary Hospital Course Hospital Course: From the history and physical by the admitting hospitalist, SHIRLENE Goldstein, 11/02/23: 48 year old female with history of htn presented to the ED earlier today for evaluation of dyspnea. The patient reports 1 week ago developed onset of fevers up to 102 with chills, malaise, fatigue, myalgias, and anorexia. States her son was sick with similar symptoms. States symptoms improved about 2 days ago but then developed cough with yellow sputum production and dyspnea on exertion so presented to the ED for further evaluation. On arrival, vital signs stable though initially tachycardic to 110. No hypoxia on room air but with exertion, desaturates 82% on room air. There is no leukocytosis. Renal function electrolyte levels normal except for mild hypokalemia of 3.2. She is negative for COVID-19, RSV, influenza, and strep a. Chest x-ray shows right lower lobe pneumonia. In the ED, has been treated with IV ceftriaxone, doxycycline. She will be admitted for further management of community-acquired pneumonia with exercise hypoxemia. 48yo F with HTN presenting with post-URI pneumonia with exertional hypoxia. She was admitted to the hospitalist service and treated with IV ceftriaxone and doxycycline. Blood and sputum cultures negative. Hypoxia resolved. She was discharged on cefuroxime and doxycycline for 4 days. Pending at the time of discharge are urinary antigens for Legionella and pneumococcus. She should follow up with primary care in 1-2 weeks. Time Attestation Discharge Coordination Time (in mins): 35 Quality: Safe Use of Opioids Does Pt have an Active Cancer Diagnosis on the Problem List?: No Quality: Stroke Does the patient have a stroke diagnosis?: No Physical Exam Vital Signs: Vital Signs: Last Vital Signs Temp 97.4 F 11/04/23 07:21 Pulse 80 11/04/23 07:21 Resp 18 11/04/23 07:21 BP 138/85 11/04/23 07:21 Pulse Ox 92 11/04/23 07:21 O2 Del Method Room Air 11/04/23 07:21 BMI result Body Mass Index 37.3 Gen: in no acute distress HEENT: sclera anicteric, moist mucus membranes Neck: supple Lungs: slightly diminished on R Heart: regular rate and rhythm, no murmurs Abd: soft, non-tender, non-distended Ext: no edema Skin: warm/well-perfused Neuro: alert and oriented x3, no focal findings Psych: appropriate affect DS: Data Data Completed and Pending Completed studies during hospitalization [Text1]: Laboratory Results WBC 6.2 X10*3/uL (4.8-10.8) 11/03/23 06:33 RBC 4.33 X10*6/uL (4.20-5.50) 11/03/23 06:33 Hgb 12.0 g/dl (12.0-16.0) 11/03/23 06:33 Hct 35.6 % (37.0-47.0) L 11/03/23 06:33 MCV 82.2 fL (80.0-98.0) 11/03/23 06:33 MCH 27.7 pg (27.0-33.0) 11/03/23 06:33 MCHC 33.7 g/dl (31.0-35.0) 11/03/23 06:33 RDW 12.4 % (11.0-16.0) 11/03/23 06:33 Plt Count 355 X10*3/uL (160-400) 11/03/23 06:33 MPV 8.7 fL (9.4-12.3) L 11/03/23 06:33 Immature Gran % (Auto) 0.6 % (0.0-0.4) H 11/03/23 06:33 Neut % (Auto) 58.8 % (45-73) 11/03/23 06:33 Lymph % (Auto) 25.7 % (20-40) 11/03/23 06:33 [place] % (Auto) 13.6 % (2-11) H 11/03/23 06:33 Eos % (Auto) 1.0 % (0-4) 11/03/23 06:33 Baso % (Auto) 0.3 % (0-2) 11/03/23 06:33 Lymph # (Auto) 1.6 X10*3/uL (1.2-4.9) 11/03/23 06:33 [place] # (Auto) 0.9 X10*3/uL (0.1-1.2) 11/03/23 06:33 Eos # (Auto) 0.1 X10*3/uL (0.0-0.4) 11/03/23 06:33 Baso # (Auto) 0.0 X10*3/uL (0.0-0.2) 11/03/23 06:33 Abs Immat Gran (auto) 0.04 X10*3/uL (0.00-0.03) H 11/03/23 06:33 Absolute Neuts (auto) 3.7 x10*3/uL (2.0-8.3) 11/03/23 06:33 Absolute Nucleated RBC 0.000 X10*3/uL (0.0-0.012) 11/03/23 06:33 Nucleated RBC % (auto) 0.0 /100WBC (0.0-0.2) 11/03/23 06:33 Sodium 140 mmol/L (135-145) 11/03/23 06:33 Potassium 3.7 mmol/L (3.3-5.1) 11/03/23 06:33 Chloride 104 mmol/L (96-108) 11/03/23 06:33 Carbon Dioxide 27 mmol/L (22-29) 11/03/23 06:33 Anion Gap 13 (12-20) 11/03/23 06:33 BUN 7 mg/dL (9-16) L 11/03/23 06:33 Creatinine 0.64 mg/dL (0.5-1.4) 11/03/23 06:33 Estim Creat Clear Calc 151.0 11/03/23 06:33 Estimated GFR > 60 11/03/23 06:33 Random Glucose 107 mg/dL (60-115) 11/03/23 06:33 Lactic Acid 1.0 mmol/L (0.5-2.0) 11/02/23 16:46 Calcium 8.9 mg/dL (8.4-10.2) 11/03/23 06:33 Total Bilirubin 0.4 mg/dL (0.0-1.0) 11/02/23 16:46 AST 51 U/L (5-31) H 11/02/23 16:46 ALT 62 U/L (0-31) H 11/02/23 16:46 Alkaline Phosphatase 109 U/L (39-117) 11/02/23 16:46 Total Protein 7.0 g/dL (6.5-8.0) 11/02/23 16:46 Albumin 3.9 g/dL (3.5-5.0) 11/02/23 16:46 Lipase 21 U/L (8-78) 11/02/23 16:46 Procalcitonin 0.04 ng/mL 11/03/23 06:33 Influenza Type A (PCR) NEGATIVE (Negative) 11/02/23 15:13 Influenza Type B (PCR) NEGATIVE (Negative) 11/02/23 15:13 RSV RNA Qual (PCR) NEGATIVE (Negative) 11/02/23 15:13 SARS-CoV-2 RNA (RT-PCR) NEGATIVE (Negative) 11/02/23 15:13 S. pyogenes GrpA IVAN Negative (Negative) 11/02/23 15:13 Impressions Chest X-Ray 11/02/23 15:42 IMPRESSION: Right lower lobe consolidation, suspicious for lobar pneumonia. Discharge Plan Discharge Anticipated Discharge Date/Time: 11/04/23 17:18 Patient Disposition: Home, Self-Care Discharge Diagnosis: hypoxia due to pneumonia Referrals: Physician,None [Primary Care Provider] - 1 Week Discharge Medications: New doxycycline monohydrate 100 mg Capsule 100 mg PO Q12H Qty: 8 0RF cefuroxime axetil 500 mg Tablet 500 mg PO Q12H Qty: 8 0RF Continued multivitamin Tablet 1 tab PO QAM amlodipine 5 mg tablet 5 mg PO QPM Discharge Orders: Discharge Order (Routine); Ordered 11/04/23 Ordered By: Lashonda Simon Activity on Discharge: As tolerated Stand Alone Forms: Patient Portal Discharge page Print Language: Yoruba Care Plan Goals: recovery from pneumonia Health Concerns: hypoxia due to pneumonia Plan of Treatment: hypoxia resolved take antibiotics for 4 days as prescribed: - cefuroxime 500 mg twice daily - doxycycline 100 mg twice daily Please follow up with your primary care doctor within 1 week. Return to the hospital if you experience recurrent or worsening symptoms. Assessment: See Discharge Summary. Discharge Date/Time: 11/04/23 17:06
[2023-11-04 12:54] LABS: HIV AB/AG Nonreactive (Nonreactive); HIV Num 1 0.04 S/CO (0.00-0.99)
[2023-11-04 15:06] VITALS: BP 138/78; PULSE 83; RESP 20; TEMP 36.1; O2SAT 94
--- NOTE | 2023-11-04 16:18 | MHC.CM.PN ---
Pt is medically cleared for discharge home self-care, pt has arranged her own transport home.
[2023-11-06 05:49] LABS: Strep Pneumo Ag urine Not Detected (Not Detected)
[2023-11-07 03:39] LABS: Legionella Ag Urine Not Detected (Not Detected)
== END 2023-11-04 17:06 | disposition home or self-care (01) | DRG 139 ==
LOC: HO.ED 18:08 → HO.EDOVER 19:11 → HO.IMC 11-03
PROVIDERS: Physician Assistant; Physician Assistant Medical; Admitting Provider Physician Assistant; Emergency Provider Internal Medicine; Visit Provider Family Medicine
DX: J18.9 Pneumonia, unspecified organism (principal); E87.6 Hypokalemia; I10 Essential (primary) hypertension; Z20.822 Contact with and (suspected) exposure to COVID-19; Z88.0 Allergy status to penicillin; Z88.2 Allergy status to sulfonamides; Z79.899 Other long term (current) drug therapy
CPT/HCPCS: 0241U; 36415; 71046; 80048; 80053; 83605; 83690; 84145; 85025; 87040; 87070; 87205; 87389; 87449; 87651; 87899; 94640; 99285; J0696; J1650

== ENCOUNTER → 2023-11-02 18:26 | Outpatient (BNV) | payer OTHER, SELFPAY | PROVIDERS: Admitting Provider Physician Assistant; Emergency Provider Internal Medicine; Visit Provider Physician Assistant | DX: J18.9 Pneumonia, unspecified organism (principal) | CPT/HCPCS: 99223; 99232; 99239 ==

== ENCOUNTER 2023-12-31 07:23 | Outpatient (REF) | payer OTHER, SELFPAY ==
[2023-12-31 11:26] LABS: MANUAL DIFF FLAG NO
[2023-12-31 11:42] LABS: Appearance Urine Turbid; Color Urine Yellow; Glucose Urine UA Negative (Negative); Leukocyte Esterase Urine Large (3+) (Negative); Nitrite Urine Negative (Negative); PH 6.5 (5.0-9.0); UMIC TRIGGER UA YES; Urine Blood Negative (Negative); Urine Ketones Negative (Negative); Urine Protein Negative (Neg-Trace)
[2023-12-31 11:47] LABS: Basophils Percent Auto 0.5 % (0-2); Eosinophils Absolute Auto 0.1 X10*3/uL (0.0-0.4); Eosinophils Percent Auto 0.9 % (0-4); Hematocrit 40.5 % (37.0-47.0); Hemoglobin 13.2 g/dl (12.0-16.0); Imm Gran Abs Auto 0.01 X10*3/uL (0.00-0.03); Imm Gran Pct Auto 0.2 % (0.0-0.4); Lymphocytes Absolute Auto 2.4 X10*3/uL (1.2-4.9); Lymphocytes Percent Auto 36.2 % (20-40); Mean Corpuscular HGB Conc 32.6 g/dl (31.0-35.0); Mean Corpuscular Hemoglobin 27.9 pg (27.0-33.0); Mean Corpuscular Volume 85.6 fL (80.0-98.0); Mean Platelet Volume 9.5 fL (9.4-12.3); Monocytes Absolute Auto 0.8 X10*3/uL (0.1-1.2); Monocytes Percent Auto 11.7 % (2-11); Neutrophils Absolute Auto 3.3 x10*3/uL (2.0-8.3); Neutrophils Percent Auto 50.5 % (45-73); Platelet Count 372 X10*3/uL (160-400); Red Blood Count 4.73 X10*6/uL (4.20-5.50); Red Cell Distribution Width 13.3 % (11.0-16.0); White Blood Count 6.5 X10*3/uL (4.8-10.8)
[2023-12-31 12:04] LABS: Bacteria Urine 4+ (None Seen); Hyaline Casts Urine 0-2 /LPF (0-2); RBC Urine 0-2 /HPF (0-2); Squamous Epithelial Cell Urine >20 /HPF (0-2)
[2023-12-31 12:19] LABS: Alanine Aminotransferase 41 U/L (0-31); Albumin Level 4.2 g/dL (3.5-5.0); Alkaline Phosphatase 88 U/L (39-117); Anion Gap 11 (12-20); Aspartate Amino Transferase 32 U/L (5-31); Bilirubin Total 0.4 mg/dL (0.0-1.0); Blood Urea Nitrogen 11 mg/dL (9-16); Carbon Dioxide 26 mmol/L (22-29); Chloride 106 mmol/L (96-108); Cholesterol 175 mg/dL (<200); Estimated Glomerular Filt Rate > 60; Glucose Fasting 103 mg/dL (60-99); HDL Cholesterol 50 mg/dL (>40); LDL Cholesterol Calculated 104 mg/dL (<100); Potassium 3.9 mmol/L (3.3-5.1); Sodium 139 mmol/L (135-145); Total Protein 6.8 g/dL (6.5-8.0); Triglycerides 107 mg/dL (<150)
[2023-12-31 12:27] LABS: Creatinine Urine 174.42 mg/dL; Microalbum/Creatinine Ratio Ur 6.3 ug/mg cr (<30)
[2023-12-31 12:40] LABS: TSH reflex Free T4 5.02 uIU/mL (0.32-4.0)
[2023-12-31 13:30] LABS: Free T4 (Free Thyroxine) 0.75 ng/dL (0.71-1.85)
== END 2023-12-31 07:24 | disposition home or self-care (01) ==
LOC: HO.HMGCLDS 07:23
PROVIDERS: PCP Family Medicine; Visit Provider Family Medicine
DX: Z00.00 Encounter for general adult medical examination without abnormal findings (principal); I10 Essential (primary) hypertension
CPT/HCPCS: 36415; 80053; 80061; 81001; 82043; 82570; 84439; 84443; 85025

== ENCOUNTER 2024-02-27 14:24 | Outpatient (AMB) | payer OTHER, SELFPAY ==
--- NOTE | 2024-02-27 14:34 | A.OFFPC_ITS ---
Vital Signs 02/27/24 14:39 Height 5 ft 11 in Weight 280 lb 4 oz BMI 39.1 BP 108/70 Blood Pressure Location Rt brachial Position Sitting Respiration 16 Pulse 75 Pulse Source Pulse Oximeter Temp 97.8 F Temp Source Tympanic Pulse Oximetry (%) 99 Oxygen Delivery Method Room Air Intake Visit Reasons: follow up/ labs and urine Intake Note: CPE Allergies Penicillins [PCN] Allergy (Verified 02/27/24 14:37) Hives Sulfa (Sulfonamide Antibiotics) Allergy (Verified 02/27/24 14:37) Hives erythromycin base Adverse Reaction (Mild, Verified 02/27/24 14:37) Vomiting Tobacco use date assessed: 02/27/24 Dental Screening Dental Screen Date: 02/27/24 Did you have a dental visit in the last 12 months?: No Did you have a dental problem in the last 6 months where you did not have access to dental care?: No Was dental information given to patient?: Patient has dentist HPI follow up/ labs and urine HPI Details 48 y/o female presents today for a CPE w ith f/u labs and health [facility]. Labs drawn 12/31/23. Reviewed labs with pt. Elevated fasting glucose of 103. Hx of gestational diabetes. Elevated liver enzymes - AST 32. ALT 41. Triglycerides 107. TC 175. LDL 104. HDL 50. TSH 5.02. 4+ urine bacteria seen. Would like referral to dermatology for a skin survey. HPI Comments History of Present Illness Details Documentation assistance for Roscoe Mansfield MD, was provided by Myke Naik, Locomotive Engineer on 02/27/2024 at 3:00 PM EST. I, Dr. Mansfield, have read, observed, and verified documentation. [facility] Medical History (Updated 02/27/24 @ 15:15 by Myke Naik) Hypertension Migraines Surgical History (Updated 12/24/23 @ 10:11 by Sherie Sommers CMA) No pertinent past surgical history Family History (Updated 12/24/23 @ 10:15 by Sherie Sommers CMA) Mother Breast cancer Father Cancer of blood vessel COVID Alzheimer disease Social History (Updated 02/27/24 @ 14:37 by Chepe Feliciano) Household Members: Children Housing: House Do you presently have visiting nurse or other home services: No 75 years or older and lives alone: No Alcohol intake: never Patient Tobacco Use Status: Never used Tobacco e-Cigarette/Vaping Use: Never Used Second Hand Smoke Exposure: No Special bennett needs: No service: No Current occupational status: employed 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 1. Little interest or pleasure in doing things: not at all 2. Feeling down, depressed, or hopeless: not at all 3. Trouble falling or staying asleep, or sleeping too much: not at all 4. Feeling tired or having little energy: not at all 5. Poor appetite or overeating: several days 6. Feeling bad about yourself - or that you are a failure or have let yourself or your family down: not at all 7. Trouble concentrating on things, such as reading the newspaper or watching television: not at all 8. Moving or speaking so slowly that other people could have noticed. Or the opposite - being so fidgety or restless that you have been moving around a lot more than usual: not at all 9. Thoughts that you would be better off or of hurting yourself in some way: not at all Total score: 1 Depression Screening Interpretation: Negative Depression Screening Done: Yes 31781 - PHQ-9 Billing: Yes Source: Developed by Drs. Flaco Alegria, Lois Golden, Pilo Escalona and colleagues, with an educational sandra from [employer]. Thrive Questionnaire Date Thrive assessed: 02/27/24 I am a: Patient What is your living situation today?: I have a steady place to live Within the past 12 months, did the food you bought not last and you didn't have the money to get more?: Never true Within the past 12 months, did you worry whether your food would run out before you got money to buy more?: Never true Do you have trouble paying for medicines?: No Do you have trouble getting transportation to medical appointments?: No Do you have trouble paying your heating and electricity bill?: No Do you have trouble taking care of your child, family member or friend?: No Do you have trouble with day-to-day activities such as bathing, preparing meals, shopping, managing finances, etc.?: No Are you currently unemployed and looking for a job?: No Are you interested in more education?: No Please select the resources that you would like help with: None Currently or been in a relationship where the following occur: No concerns reported THRIVE Score: 0 AUDIT C Alcohol Use Questionnaire (AUDIT-C) 1. How often do you have a drink containing alcohol?: Never 3. How often do you have six or more drinks on one occasion?: Never Total Score: 0 Score Reviewed/Action Taken: Yes ZOHAIB-7 AMB Questionnaire ZOHAIB-7 Date ZOHAIB - 7 assessed: 12/24/23 Feeling nervous, anxious, or on edge: 0 = Not at all Worrying too much about different things: 0 = Not at all Trouble relaxin = Not at all Being so restless that it is hard to sit still: 0 = Not at all Becoming easily annoyed or irritable: 0 = Not at all Feeling afraid as if something awful might happen: 0 = Not at all Source: Developed by Drs. Flaco Alegria, Lois Golden, Pilo Escalona and colleagues, with an educational sandra from [employer]. ZOHAIB-7 Assessment Billing ZOHAIB-7 Assessment Tool: ZOHAIB-7 Assessment 50690 Review of Systems Const Denies chills, Denies fatigue, Denies fever(s), Denies headache(s) and Denies weakness Eyes Denies change in vision ENT Denies dizziness, Denies headache(s), Denies hearing loss, Denies nasal congestion, Denies sinus pain, Denies sinus pressure and Denies sore throat Card Denies chest pain, Denies lightheadedness, Denies dyspnea and Denies other (palpitations) Resp Denies cough, Denies dyspnea and Denies wheezing GI Denies abdominal pain, Denies melena, Denies hematochezia, Denies change in bowel habits, Denies dyspepsia and Denies nausea Denies hematuria and Denies dysuria Musc Denies abnormal gait, Denies myalgias, Denies arthralgias, Denies numbness and Denies tingling Skin/Breast Denies rash, Denies unusual bruising and Denies wounds Neuro Denies abnormal gait, Denies dizziness, Denies headache(s), Denies memory loss, Denies numbness, Denies Sensory deficit (Neuro), Denies tingling and Denies weakness Psych Denies anxiety, Denies depression and Denies memory loss Endo Denies cold intolerance, Denies fatigue, Denies heat intolerance, Denies polydipsia and Denies polyuria Riley/Lymph Denies easy bleeding and Denies easy bruising Aller/Immun Denies wheezing Physical exam (Primary Care) Vital Signs: Last Vital Signs Temp 97.8 F 02/27/24 14:39 Pulse 75 02/27/24 14:39 Resp 16 02/27/24 14:39 BP 108/70 02/27/24 14:39 Pulse Ox 99 02/27/24 14:39 Oxygen Delivery Method Room Air 02/27/24 14:39 BMI result Body Mass Index 39.1 Tobacco/Smoking Status: Tobacco use Status Tobacco use date assessed 02/27/24 02/27/24 14:42 Patient Tobacco Use Status Never used Tobacco 02/27/24 14:37 e-Cigarette/Vaping Use Never Used 02/27/24 14:37 PHQ-9: PHQ-9 Score PHQ-9: Total score 1 02/27/24 14:36 Depression Screening Interpretation: Negative Thrive Assessment: Date of Thrive Assessment Date Thrive assessed 02/27/24 02/27/24 14:36 Currently or been in a relationship where the following occur: No concerns rep orted Const General: no acute distress, well developed, alert and awake Nutritional Appearance: well nourished Orientation/consciousness: patient oriented x3 HENMT Head: Yes normocephalic and Yes atraumatic Ears: hearing grossly normal bilaterally and TM's normal bilaterally General nose exam: Normal external nose present and Normal nares present Mouth: Normal oral and palatal mucosa present and moist mucous membranes Teeth and gingiva: dentition normal Throat: Yes posterior oropharynx normal Eyes General: appearance normal, both eyes and all related structures Pupils: Equal, round and reactive pupils present and Pupil accommodation reflex normal EOM: EOMs intact bilaterally Neck Neck: Yes normal visual inspection, Yes no lymphadenopathy and Yes trachea midline Thyroid: Thyroid normal Carotids: no bruits Lymphatic: no lymphadenopathy noted Chest Chest palpation & inspection: normal inspection of the chest Resp Effort & Inspection: normal respiratory effort Auscultation: clear to auscultation bilaterally Cardio Rate: regular rate Rhythm: regular rhythm Heart sounds: S1 normal heart sound present, S2 normal heart sound present, no gallops, no murmurs and no rubs Bruits: no abdominal aortic bruits and no carotid bruits GI Palpation (GI): No Abdominal aortic bruit present, Soft to palpation, nontender, No hepatosplenomegaly present and No Rebound tenderness present Auscultation: normal bowel sounds General: Yes no CVA tenderness Back/Spine/Pelvis Back: no CVA tenderness Cervical Spine: cervical ROM normal and No Cervical spine tenderness Thoracic/Lumbar Spine: thoraco-lumbar ROM normal, No pain with thoraco-lumbar ROM, No thoracic spinal tenderness and No lumbar spinal tenderness Skin Lesions: no lesions Rashes: no rashes Trauma: no lacerations or abrasions Wounds: no wounds Nails: normal Neuro General: patient oriented x3 Cranial nerves: Yes Equal, round and reactive pupils present Cognition (Neuro): normal cognition Gait exam (Neuro): Normal gait present Motor exam (neuro): 5/5 motor strength present throughout Sensory Exam: No Sensory deficit (Neuro) Deep tendon reflexes (DTR's): Right patellar reflex intensity grade: 2+ and Left patellar reflex intensity grade: 2+ Extrem General: Yes normal to inspection and No edema Psych Appearance: grossly normal Affect: normal affect Attitude: cooperative Thought process: Normal thought process present Assessment and Plan Assessment & Plan (1) Adult general medical exam: Code(s): Z00.00 - Encounter for general adult medical examination without abnormal findings Plan: 48-year-old?female?presents?for?complete?physical?exam Encouraged?healthy?diet?with?active?lifestyle?and?plenty?of?exercise (2) Hypertension: Code(s): I10 - Essential (primary) hypertension Plan: Blood?pressure?is?well?controlled.??Goal?is?less?than?140/90 Continue?current?medication (3) Elevated fasting glucose: Code(s): R73.01 - Impaired fasting glucose Plan: Mildly?elevated?fasting?blood?sugar.??She?does?have?a?hist ory?of?gestational?diabetes Recheck?blood?sugar?as?well?as?A1c (4) History of gestational diabetes: Code(s): Z86.32 - Personal history of gestational diabetes Plan: As?above (5) Elevated liver enzymes: Code(s): R74.8 - Abnormal levels of other serum enzymes Plan: Mildly?elevated?liver?enzymes Check?liver?ultrasound Encouraged?weight?loss Repeat?liver?enzymes?with?next?blood?draw (6) Neoplasm of uncertain behavior of skin: Code(s): D48.5 - Neoplasm of uncertain behavior of skin Plan: Melanotic?lesion?at?left?crystal?with?mildly?irregular?borders?and?1?cm?in?size Referred?to?dermatology (7) Elevated TSH: Code(s): R79.89 - Other specified abnormal findings of blood chemistry Plan: TSH?was?elevated?with?labs?drawn?shortly?after?pneumonia Will?recheck?as?this?has?likely?resolved (8) Elevated LDL cholesterol level: Code(s): E78.00 - Pure hypercholesterolemia, unspecified Plan: Mildly?elevated?LDL?cholesterol. Encouraged?diet?lower?in?saturated?fats?and?cholesterol Encouraged?weight?loss We?can?follow-up?on?this?at?a?subsequent?visit (9) Bacteria in urine: Code(s): R82.71 - Bacteriuria Plan: Asymptomatic Will?recheck?with?next?lab?work (10) Screening for cervical cancer: Code(s): Z12.4 - Encounter for screening for malignant neoplasm of cervix Plan: Referred?to?awning erector (11) Screening for colon cancer: Code(s): Z12.11 - Encounter for screening for malignant neoplasm of colon Plan: Referred?to?Gastroenterology?for?1st?screening?colonoscopy (12) Breast cancer screening by mammogram: Code(s): Z12.31 - Encounter for screening mammogram for malignant neoplasm of breast Plan: Patient?says?her?last?mammogram?was?greater?than?1?year?ago Mammogram?ordered Orders: Orders Free T4 (Free Thyroxine) Today E03.9 - Hypothyroidism, unspecified, R79.89 - Other specified abnormal findings of blood chemistry Thyroid Stimulating Hormone Today E03.9 - Hypothyroidism, unspecified, R79.89 - Other specified abnormal findings of blood chemistry MM tomosynthesis screening BI Today Z12.31 - Encounter for screening mammogram for malignant neoplasm of breast US abdomen villa w elastography Today R74.8 - Abnormal levels of other serum enzymes Triiodothyronine T3 Total Today E03.9 - Hypothyroidism, unspecified, R79.89 - Other specified abnormal findings of blood chemistry Hemoglobin A1c Today R73.01 - Impaired fasting glucose Comprehensive [place]. Panel Fast Today R73.01 - Impaired fasting glucose, Z00.00 - Encounter for general adult medical examination without abnormal findings UA and rflx microscopic Today R82.71 - Bacteriuria, Z00.00 - Encounter for general adult medical examination without abnormal findings Referrals MEDICAL BILLING SPECIALIST Referral Z12.4 - Encounter for screening for malignant neoplasm of cervix Dermatology Referral D48.5 - Neoplasm of uncertain behavior of skin Gastroenterology Referral Z12.11 - Encounter for screening for malignant neoplasm of colon Coding Level of Care Code Est Pt Level 3 (27377) Est Pt Prev Care 40-64y(38668) Diagnoses Adult general medical exam Z00.00 Hypertension I10 Elevated fasting glucose R73.01 History of gestational diabetes Z86.32 Elevated liver enzymes R74.8 Neoplasm of uncertain behavior of skin D48.5 Elevated TSH R79.89 Elevated LDL cholesterol level E78.00 Bacteria in urine R82.71 Screening for cervical cancer Z12.4 Screening for colon cancer Z12.11 Breast cancer screening by mammogram Z12.31 Additional Codes ZOHAIB-7 Assessment Billing - ZOHAIB-7 Assessment Tool: ZOHAIB-7 Assessment 51869 ([id number])
[2024-02-27 14:39] VITALS: BP 108/70; PULSE 75; RESP 16; TEMP 36.6; O2SAT 99; BMI 39.1
== END 2024-02-27 15:16 | disposition home or self-care (01) ==
PROVIDERS: PCP Family Medicine; Visit Provider Family Medicine
DX: Z00.00 Encounter for general adult medical examination without abnormal findings (principal); I10 Essential (primary) hypertension; R73.01 Impaired fasting glucose; Z86.32 Personal history of gestational diabetes; R74.8 Abnormal levels of other serum enzymes; D48.5 Neoplasm of uncertain behavior of skin; R79.89 Other specified abnormal findings of blood chemistry; E78.00 Pure hypercholesterolemia, unspecified; R82.71 Bacteriuria; Z12.4 Encounter for screening for malignant neoplasm of cervix; Z12.11 Encounter for screening for malignant neoplasm of colon; Z12.31 Encounter for screening mammogram for malignant neoplasm of breast
CPT/HCPCS: 99396

== ENCOUNTER 2024-03-16 08:13 | Outpatient (REF) | payer OTHER, SELFPAY ==
--- NOTE | ~2024-03-16 | US_ITS ---
EXAMINATION: US ABDOMEN LIMITED WITH LIVER ELASTOGRAPHY CLINICAL INFORMATION: Abnormal levels of serum enzymes. COMPARISON: None available. TECHNIQUE: Real-time imaging of the abdominal viscera. Noninvasive ultrasound liver fibrosis assessment is performed using Emmy ElastPQ point quantification shear wave elastography (pSWE) with a 5 MHz transducer. Multiple elastography samples are obtained. FINDINGS: PANCREAS: Normal. The visualized pancreatic head and body are normal in appearance. The remainder of the pancreas is obscured from visualization by the overlying bowel gas. LIVER: The liver is enlarged measuring at least 19 cm in greatest length. No focal lesion or intrahepatic biliary duct dilatation. The right lobe measures 19.4 cm in length. The left lobe measures 10.5 cm in length. Shear wave elastography provides a median stiffness of 1.73 m/s (reference: normal median stiffness is 0.81 - 1.22 m/s). The IQR/median stiffness to assess sampling precision is 0.40 (reference: optimal IQR/median stiffness is under 0.3). There is hepatopedal flow in the portal vein. GALLBLADDER: Normal. The gallbladder is physiologically distended without evidence of stones, sludge, polyps, wall thickening or pericholecystic fluid. COMMON BILE DUCT: Normal in caliber measuring 0.4 cm in diameter. RIGHT KIDNEY: Normal. No hydronephrosis. No renal calculi or focal parenchymal lesions. The kidney measures 12.4 cm in maximum dimension. FREE FLUID: None. US/US abdomen villa w elastography IMPRESSION: 1. Enlarged fatty liver. 2. Elastography: Liver elastography measurements are consistent with a moderate risk for clinically significant liver fibrosis (METAVIR Stage F2-F3). Electronically signed by: Jerome Vega MD 03/21/2024 12:36 PM EDT
== END 2024-03-16 08:14 | disposition home or self-care (01) ==
LOC: HO.US 08:13
PROVIDERS: PCP Family Medicine; Visit Provider Family Medicine
DX: R74.8 Abnormal levels of other serum enzymes (principal)
CPT/HCPCS: 76705; 76981

== ENCOUNTER 2024-04-01 10:29 | Outpatient (REF) | payer OTHER, SELFPAY ==
--- NOTE | ~2024-04-01 | MM_ITS ---
EXAMINATION: MM SCREENING DIGITAL BREAST TOMOSYNTHESIS, BILATERAL CLINICAL INFORMATION: Screening. Asymptomatic. COMPARISON: Mammography: Comparison is made with available priors TECHNIQUE: Digital breast mammography with tomosynthesis is performed in both the craniocaudal and mediolateral oblique views along with computer-aided detection (CAD). FINDINGS: The breasts are heterogeneously dense, which may obscure small masses (ACR BI-RADS breast composition Category c). There are no significant masses, abnormal calcifications, or other abnormalities. MM/MM tomosynthesis screening BI IMPRESSION: No mammographic evidence of malignancy. ASSESSMENT: BI-RADS BI-RADS 1 - Negative RECOMMENDATION: Routine annual mammography screening. 1 year F/U This examination should not preclude the clinical evaluation of a suspicious palpable abnormality. This patient's information was entered into a reminder system with a target due date for their next mammogram. Electronically signed by: Wendy Farah DO 04/13/2024 05:15 PM EDT
== END 2024-04-01 10:30 | disposition home or self-care (01) ==
LOC: HO.MAMMO 10:29
PROVIDERS: PCP Family Medicine; Visit Provider Family Medicine
DX: Z12.31 Encounter for screening mammogram for malignant neoplasm of breast (principal)
CPT/HCPCS: 77063; 77067

== ENCOUNTER → 2024-04-01 10:30 | Outpatient (BNV) | payer OTHER, SELFPAY | PROVIDERS: PCP Family Medicine; Visit Provider Internal Medicine | DX: Z12.31 Encounter for screening mammogram for malignant neoplasm of breast (principal) | CPT/HCPCS: 77063; 77067 ==

== ENCOUNTER 2024-05-01 09:23 | Outpatient (AMB) | payer OTHER, SELFPAY ==
--- NOTE | 2024-05-01 09:31 | A.OFFPC_ITS ---
Vital Signs 05/01/24 09:32 Height 5 ft 11 in Weight 272 lb 2 oz BMI 37.9 BP 135/70 Blood Pressure Location Rt brachial Position Sitting Respiration 14 Pulse 84 Pulse Source Pulse Oximeter Temp 96.8 F Temp Source Temporal Artery Scan Pulse Oximetry (%) 98 Oxygen Delivery Method Room Air Intake Visit Reasons: f/u labs Intake Note: f/u ultrasound pt did not get labs done Allergies Penicillins [PCN] Allergy (Verified 05/01/24 09:32) Hives Sulfa (Sulfonamide Antibiotics) Allergy (Verified 05/01/24 09:32) Hives erythromycin base Adverse Reaction (Mild, Verified 05/01/24 09:32) Vomiting Tobacco use date assessed: 02/27/24 Dental Screening Dental Screen Date: 02/27/24 HPI f/u labs HPI Details 48 y/o female presents to 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 Also f/u ultrasound of liver for elevated liver enzymes. Liver ultrasound 03/16/24 showed: IMPRESSION: 1. Enlarged fatty liver. 2. Elastography: Liver elastography alma surements are consistent with a moderate risk for clinically significant liver fibrosis (METAVIR Stage F2-F3). Electronically signed by: Jerome Vega MD 03/21/2024 12:36 PM EDT RP She has an appt. scheduled for a colonoscopy with Lenora Heard. [facility] Medical History (Updated 05/01/24 @ 10:32 by Roscoe Mansfield MD) Hypertension Migraines Surgical History (Updated 12/24/23 @ 10:11 by Sherie Sommers CMA) No pertinent past surgical history Family History (Updated 12/24/23 @ 10:15 by Sherie Sommers CMA) Mother Breast cancer Father Cancer of blood vessel COVID Alzheimer disease Social History (Updated 02/27/24 @ 14:37 by FESTUS Kowalski) Household Members: Children Housing: House Do you presently have visiting nurse or other home services: No 75 years or older and lives alone: No Alcohol intake: never Patient Tobacco Use Status: Never used Tobacco e-Cigarette/Vaping Use: Never Used Second Hand Smoke Exposure: No Special bennett needs: No service: No Current occupational status: employed 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 1. Little interest or pleasure in doing things: not at all 2. Feeling down, depressed, or hopeless: not at all 3. Trouble falling or staying asleep, or sleeping too much: not at all 4. Feeling tired or having little energy: not at all 5. Poor appetite or overeating: not at all 6. Feeling bad about yourself - or that you are a failure or have let yourself or your family down: not at all 7. Trouble concentrating on things, such as reading the newspaper or watching television: not at all 8. Moving or speaking so slowly that other people could have noticed. Or the opposite - being so fidgety or restless that you have been moving around a lot more than usual: not at all 9. Thoughts that you would be better off or of hurting yourself in some way: not at all Total score: 0 Source: Developed by Drs. Flaco Alegria, Lois Golden, Pilo Escalona and colleagues, with an educational sandra from [employer]. Thrive Questionnaire Date Thrive assessed: 04/24/24 I am a: Patient What is your living situation today?: I have a steady place to live Within the past 12 months, did the food you bought not last and you didn't have the money to get more?: Never true Within the past 12 months, did you worry whether your food would run out before you got money to buy more?: Never true Do you have trouble paying for medicines?: No Do you have trouble getting transportation to medical appointments?: No Do you have trouble paying your heating and electricity bill?: No Do you have trouble taking care of your child, family member or friend?: No Do you have trouble with day-to-day activities such as bathing, preparing meals, shopping, managing finances, etc.?: No Are you currently unemployed and looking for a job?: No Are you interested in more education?: No Please select the resources that you would like help with: None Currently or been in a relationship where the following occur: No concerns reported THRIVE Score: 0 AUDIT C Alcohol Use Questionnaire (AUDIT-C) 1. How often do you have a drink containing alcohol?: Never 3. How often do you have six or more drinks on one occasion?: Never Total Score: 0 ZOHAIB-7 AMB Questionnaire ZOHAIB-7 Date ZOHAIB - 7 assessed: 12/24/23 Feeling nervous, anxious, or on edge: 0 = Not at all Not being able to stop or control worryin = Not at all Worrying too much about different things: 0 = Not at all Trouble relaxin = Not at all Being so restless that it is hard to sit still: 0 = Not at all Becoming easily annoyed or irritable: 1 = Several days Feeling afraid as if something awful might happen: 0 = Not at all Total ZOHAIB-7 score (0-4 normal; 5-9 mild; 10-14 moderate; 15-21 severe): 1 Source: Developed by Drs. Flaco Alegria, Lois Golden, Pilo Escalona and colleagues, with an educational sandra from [employer]. Review of Systems Const Denies chills, Denies fatigue, Denies fever(s), Denies headache(s) and Denies weakness ENT Denies dizziness and Denies headache(s) Card Denies dyspnea Resp Denies cough, Denies dyspnea, Denies wheezing and Denies other (shortness of breath) Musc Denies numbness and Denies tingling Neuro Denies dizziness, Denies headache(s), Denies numbness, Denies tingling and Denies weakness Psych Denies anxiety and Denies depression Endo Denies fatigue Aller/Immun Denies wheezing Physical exam (Primary Care) Vital Signs: Last Vital Signs Temp 96.8 F 05/01/24 09:32 Pulse 84 05/01/24 09:32 Resp 14 05/01/24 09:32 BP 135/70 05/01/24 09:32 Pulse Ox 98 05/01/24 09:32 Oxygen Delivery Method Room Air 05/01/24 09:32 BMI result Body Mass Index 37.9 Tobacco/Smoking Status: Tobacco use Status Tobacco use date assessed 02/27/24 05/01/24 09:35 Patient Tobacco Use Status Never used Tobacco 05/01/24 09:35 e-Cigarette/Vaping Use Never Used 05/01/24 09:35 PHQ-9: PHQ-9 Score PHQ-9: Total score 0 05/01/24 09:35 Thrive Assessment: Date of Thrive Assessment Date Thrive assessed 04/24/24 05/01/24 09:35 Currently or been in a relationship where the following occur: No concerns reported Const General: well developed; No acute distress Nutritional Appearance: well nourished Orientation/consciousness: patient oriented x3 HENMT Head: Yes normocephalic and Yes atraumatic Eyes General: appearance normal, both eyes and all related structures Pupils: Equal, round and reactive pupils present EOM: EOMs intact bilaterally Resp Effort & Inspection: normal respiratory effort Neuro General: patient oriented x3 and gait normal Cranial nerves: Yes Equal, round and reactive pupils present Psych Affect: normal affect Coding Level of Care Code Est Pt Level 3 (90050) Diagnoses Elevated liver enzymes R74.8 Screening for colon cancer Z12.11 Breast cancer screening by mammogram Z12. Assessment & Plan Assessment & Plan (1) Elevated liver enzymes: Code(s): R74.8 - Abnormal levels of other serum enzymes Category: Medical Plan: Elevated?liver?enzymes, hepatic?steatosis?and?abn ormal?she?will?wave?elastography?of?liver Patient?has?been?working?on?losing?weight Continue?weight?loss Hydrate?well Follow-up?with?Gastroenterology Rechecking?liver?enzymes (2) Screening for colon cancer: Code(s): Z12.11 - Encounter for screening for malignant neoplasm of colon Category: Medical Plan: Has?appointment?with?Gastroenterology (3) Breast cancer screening by mammogram: Code(s): Z12. - Encounter for screening mammogram for malignant neoplasm of breast Category: Medical Plan: Mammogram?negative Continue?annual?screening Orders: Orders Triiodothyronine T3 Total Today E03.9 - Hypothyroidism, unspecified, I10 - Essential (primary) hypertension Thyroid Stimulating Hormone Today E03.9 - Hypothyroidism, unspecified, I10 - Essential (primary) hypertension Free T4 (Free Thyroxine) Today E03.9 - Hypothyroidism, unspecified, I10 - Essential (primary) hypertension UA and rflx microscopic Today I10 - Essential (primary) hypertension, Z00.00 - Encounter for general adult medical examination without abnormal findings Microalbumin, Random (w Creat) Today I10 - Essential (primary) hypertension Comprehensive [place]. Panel Fast Today R74.8 - Abnormal levels of other serum enzymes, Z00.00 - Encounter for general adult medical examination without abnormal findings Lipid Panel Today E78.00 - Pure hypercholesterolemia, unspecified, Z00.00 - Encounter for general adult medical examination without abnormal findings
[2024-05-01 09:32] VITALS: BP 135/70; PULSE 84; RESP 14; TEMP 36; O2SAT 98; BMI 37.9
== END 2024-05-01 10:33 | disposition home or self-care (01) ==
PROVIDERS: PCP Family Medicine; Visit Provider Family Medicine
DX: R74.8 Abnormal levels of other serum enzymes (principal); Z12.11 Encounter for screening for malignant neoplasm of colon; Z12.31 Encounter for screening mammogram for malignant neoplasm of breast

== ENCOUNTER → 2024-05-01 09:23 | Outpatient (BNVA) | payer OTHER, SELFPAY | PROVIDERS: PCP Family Medicine; Visit Provider Family Medicine | DX: R74.8 Abnormal levels of other serum enzymes (principal); E03.9 Hypothyroidism, unspecified; I10 Essential (primary) hypertension; E78.00 Pure hypercholesterolemia, unspecified | CPT/HCPCS: 96127; 99212 ==

== ENCOUNTER 2024-05-08 08:39 | Outpatient (REF) | payer OTHER, SELFPAY ==
[2024-05-08 10:16] LABS: Appearance Urine Clear; Color Urine Yellow; Glucose Urine UA Negative (Negative); Leukocyte Esterase Urine Moderate (2+) (Negative); Nitrite Urine Negative (Negative); Specific Gravity - Urine 1.015 (1.005-1.025); UMIC TRIGGER UA YES; Urine Blood Large (3+) (Negative); Urine Ketones Negative (Negative); Urine Protein Trace mg/dL (Neg-Trace)
[2024-05-08 10:59] LABS: Bacteria Urine Trace (None Seen); Hyaline Casts Urine 0-2 /LPF (0-2); RBC Urine >20 /HPF (0-2)
[2024-05-08 11:15] LABS: Creatinine Urine 197.52 mg/dL; Microalbum/Creatinine Ratio Ur 17.7 ug/mg cr (<30)
[2024-05-08 11:21] LABS: Alanine Aminotransferase 17 U/L (0-31); Albumin Level 4.2 g/dL (3.5-5.0); Alkaline Phosphatase 93 U/L (39-117); Anion Gap 12 (12-20); Aspartate Amino Transferase 20 U/L (5-31); Bilirubin Total 0.6 mg/dL (0.0-1.0); Blood Urea Nitrogen 10 mg/dL (9-16); Calcium 9.5 mg/dL (8.4-10.2); Carbon Dioxide 24 mmol/L (22-29); Chloride 106 mmol/L (96-108); Cholesterol 183 mg/dL (<200); Estimated Glomerular Filt Rate > 60; Free T4 (Free Thyroxine) 0.96 ng/dL (0.71-1.85); Glucose Fasting 105 mg/dL (60-99); HDL Cholesterol 41 mg/dL (>40); LDL Cholesterol Calculated 126 mg/dL (<100); Potassium 4.3 mmol/L (3.3-5.1); Sodium 138 mmol/L (135-145); Total Protein 6.9 g/dL (6.5-8.0); Triglycerides 84 mg/dL (<150)
[2024-05-09 09:04] LABS: Triiodothyronine T3 Total 120 ng/dL (76-181)
== END 2024-05-08 08:40 | disposition home or self-care (01) ==
LOC: HO.HMGCLDS 08:39
PROVIDERS: PCP Family Medicine; Visit Provider Family Medicine
DX: Z00.00 Encounter for general adult medical examination without abnormal findings (principal); R74.8 Abnormal levels of other serum enzymes; E78.00 Pure hypercholesterolemia, unspecified; I10 Essential (primary) hypertension; E03.9 Hypothyroidism, unspecified
CPT/HCPCS: 36415; 80053; 80061; 81001; 82043; 82570; 84439; 84443; 84480

== ENCOUNTER → 2024-05-27 09:35 | Outpatient (AMB) | payer OTHER, SELFPAY ==
--- NOTE | 2024-05-27 09:14 | A.OFFPC_ITS ---
Intake Visit Reasons: 3-4 week follow up blood work Intake Note: lab review Allergies Penicillins [PCN] Allergy (Verified 05/27/24 09:15) Hives Sulfa (Sulfonamide Antibiotics) Allergy (Verified 05/27/24 09:15) Hives erythromycin base Adverse Reaction (Mild, Verified 05/27/24 09:15) Vomiting Tobacco use date assessed: 02/27/24 Dental Screening Dental Screen Date: 02/27/24 HPI 3-4 week follow up blood work HPI Details 49 y/o female presents to review CPE-lab s via telemedicine. Labs drawn 05/08/24. Reviewed labs with pt. Elevated fasting glucose of 105. Triglycerides 84. TC 183. LDL worsened from 104 to 126. HDL 41. TSH from 5.02 to 3.70. She reports significant snoring. [facility] Medical History (Updated 05/27/24 @ 11:10 by Myke Naik) Hypertension Migraines Surgical History (Updated 12/24/23 @ 10:11 by Sherie Sommers CMA) No pertinent past surgical history Family History (Updated 12/24/23 @ 10:15 by Sherie Sommers CMA) Mother Breast cancer Father Cancer of blood vessel COVID Alzheimer disease Social History (Updated 02/27/24 @ 14:37 by Chepe Feliciano [facility]) Household Members: Children Housing: House Do you presently have visiting nurse or other home services: No 75 years or older and lives alone: No Alcohol intake: never Patient Tobacco Use Status: Never used Tobacco e-Cigarette/Vaping Use: Never Used Second Hand Smoke Exposure: No Special bennett needs: No service: No Current occupational status: employed 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 Cognitive needs: No Hearing needs: No Vision needs: Yes (Patient wears glasses.) Questionnaire Thrive Questionnaire Date Thrive assessed: 04/24/24 I am a: Patient What is your living situation today?: I have a steady place to live Within the past 12 months, did the food you bought not last and you didn't have the money to get more?: Never true Within the past 12 months, did you worry whether your food would run out before you got money to buy more?: Never true Do you have trouble paying for medicines?: No Do you have trouble getting transportation to medical appointments?: No Do you have trouble paying your heating and electricity bill?: No Do you have trouble taking care of your child, family member or friend?: No Do you have trouble with day-to-day activities such as bathing, preparing meals, shopping, managing finances, etc.?: No Are you currently unemployed and looking for a job?: No Are you interested in more education?: No Please select the resources that you would like help with: None Currently or been in a relationship where the following occur: No concerns reported THRIVE Score: 0 ZOHAIB-7 AMB Questionnaire ZOHAIB-7 Date ZOHAIB - 7 assessed: 12/24/23 Source: Developed by Drs. Flaco Alegria, Lois Golden, Pilo Escalona and colleagues, with an educational sandra from [employer]. Review of Systems Const Denies chills, Denies fatigue, Denies fever(s), Denies headache(s) and Denies weakness ENT Denies dizziness and Denies headache(s) Card Denies dyspnea Resp Denies cough, Denies dyspnea, Denies wheezing and Denies other (shortness of breath) Musc Denies numbness and Denies tingling Neuro Denies dizziness, Denies headache(s), Denies numbness, Denies tingling and Denies weakness Psych Denies anxiety and Denies depression Endo Denies fatigue Aller/Immun Denies wheezing Physical exam (Primary Care) Tobacco/Smoking Status: Tobacco use Status Tobacco use date assessed 02/27/24 05/27/24 09:16 Patient Tobacco Use Status Never used Tobacco 05/27/24 09:16 e-Cigarette/Vaping Use Never Used 05/27/24 09:16 Thrive Assessment: Date of Thrive Assessment Date Thrive assessed 04/24/24 05/27/24 09:16 Currently or been in a relationship where the following occur: No concerns reported Telehealth Telehealth Telehealth Platform: Telephone Location of provider rendering services: practice address Location of patient: address on file Patient Identification confirmed using: Name, : Yes Telehealth method: voice only Patient verbally consented to treatment: Yes Patient verbally consented to billing insurance company: Yes Patient informed of any privacy concerns related to visit: Yes Minutes spent on Phone/Video with Pt.: 8 Coding Level of Care Code Tele Est Pt Level 2 (43881) Diagnoses Elevated fasting glucose R73.01 Elevated LDL cholesterol level E78.00 Sleep apnea G47.30 Assessment & Plan Assessment & Plan (1) Elevated fasting glucose: Code(s): R73.01 - Impaired fasting glucose Category: Medical Plan: Fasting?blood?sugar?is?again?elevated Will?recheck?this?along?with?A1c?test?for?her?next?visit?to?discuss Meantime,?I?advised?a?diet?lower?in?sugars?and?starches (2) Elevated LDL cholesterol level: Code(s): E78.00 - Pure hypercholesterolemia, unspecified Category: Medical Plan: LDL?cholesterol?is?above?goal?of?less?than?100 Encouraged?a?diet?low?in?saturated?fats?and?cholesterol (3) Sleep apnea: Code(s): G47.30 - Sleep apnea, unspecified Category: Medical Plan: Referred?to?Sleep?Medicine Orders: Orders Lipid Panel Today E78.00 - Pure hypercholesterolemia, unspecified, Z00.00 - Encounter for general adult medical examination without abnormal findings Comprehensive [place]. Panel Fast Today R73.01 - Impaired fasting glucose, Z00.00 - Encounter for general adult medical examination without abnormal findings UA and rflx microscopic Today R82.71 - Bacteriuria, Z00.00 - Encounter for general adult medical examination without abnormal findings Hemoglobin A1c Today R73.01 - Impaired fasting glucose Referrals Sleep Medicine Referral G47.30 - Sleep apnea, unspecified
== END ==
LOC: HO.HMCFM 09:35
PROVIDERS: PCP Family Medicine; Visit Provider Family Medicine
DX: R73.01 Impaired fasting glucose (principal); E78.00 Pure hypercholesterolemia, unspecified; G47.30 Sleep apnea, unspecified

== ENCOUNTER 2024-06-11 14:19 | Outpatient (AMB) | payer OTHER, SELFPAY ==
--- NOTE | 2024-06-11 14:31 | MHC.OFFVIS ---
Vital Signs 06/11/24 14:32 Height 5 ft 11 in Weight 272 lb BMI 37.9 Intake Visit Reasons: INP-MO Intake Note: Patien presents for MO Allergies Penicillins [PCN] Allergy (Verified 06/11/24 14:32) Hives Sulfa (Sulfonamide Antibiotics) Allergy (Verified 06/11/24 14:32) Hives erythromycin base Adverse Reaction (Mild, Verified 06/11/24 14:32) Vomiting HPI Comments Details: 49y/o comes for sleep evaluation . Main complaints-Excessive daytime sleepiness Sleep questionnaire- Difficulty falling asleep-yes Difficulty staying asleep-/no Number of arousals-4 Snoring-yes Witnessed apneas-/no Gasping arousals-no Nocturia-yes GERD-no Vivid dreams-no Acting out dreams -no Abnormal behavior in sleep-/no ABnormal movements in sleep-no Morning headaches-no Excessive daytime sleepiness-no Daytime naps- no restless legs- no Hallucinations- no sleep paralysis- no Drop attacks- yes PFSH Medical History Excessive daytime sleepiness Snoring Hypertension Migraines Surgical History No pertinent past surgical history Family History Mother Breast cancer Father Cancer of blood vessel COVID Alzheimer disease Social History Household Members: Children Housing: House Do you presently have visiting nurse or other home services: No 75 years or older and lives alone: No Alcohol intake: never Patient Tobacco Use Status: Never used Tobacco e-Cigarette/Vaping Use: Never Used Second Hand Smoke Exposure: No Special bennett needs: No service: No Current occupational status: employed 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 Cognitive needs: No Hearing needs: No Vision needs: Yes (Patient wears glasses.) Physical Exam Vital Signs: BMI result Body Mass Index 37.9 Const General: cooperative, healthy appearing and comfortable Nutritional Appearance: obese Orientation/consciousness: patient oriented x3 Eyes Pupils: Equal, round and reactive pupils present Neuro General: patient oriented x3, gait normal, tone normal, moves all extremities and no focal motor deficits Cranial nerves: Yes Facial sensation intact/muscles of mastication intact, Yes Intact sense of smell present, Yes Equal, round and reactive pupils present, Yes Bilaterally intact EOM present, Yes Nystagmus not present, Yes Normal facial strength present, Yes Midline tongue present, Yes Symmetric palate elevation present and Yes Ability to bilaterally elevate shoulders present Cognition (Neuro): normal cognition Gait exam (Neuro): Normal gait present Assessment & Plan Assessment & Plan (1) Snoring: Code(s): R06.83 - Snoring Category: Medical (2) Excessive daytime sleepiness: Code(s): G47.19 - Other hypersomnia Category: Medical Plan Home sleep test to evaluate for sleep apnea. Orders: Orders RT home sleep study Today G47.19 - Other hypersomnia, R06.83 - Snoring Coding Level of Care Code New Pt Level 3 (91921) Diagnoses Snoring R06.83 Excessive daytime sleepiness G47.19 [place] Sleepiness Scale Questions Sitting and reading: would never doze Watching TV: slight chance of dozing Sitting inactive in a theater, movie etc.: slight chance of dozing As a passenger in a car for an hour without break: slight chance of dozing Lying down in the afternoon when circumstances permit: slight chance of dozing Sitting and talking to someone: slight chance of dozing Sitting quietly after lunch without alcohol: slight chance of dozing In a car, while stopped for a few minutes in the traffic: would never doze ESS < 10: normal, ESS > 12: pathologic: 6
[2024-06-11 14:32] VITALS: BMI 37.9
== END 2024-06-11 14:58 | disposition home or self-care (01) ==
PROVIDERS: PCP Family Medicine; Visit Provider Psychiatry & Neurology Neurology
DX: R06.83 Snoring (principal); G47.19 Other hypersomnia
CPT/HCPCS: 99203

== ENCOUNTER → 2024-06-11 14:19 | Outpatient (BNVA) | payer OTHER, SELFPAY | PROVIDERS: PCP Family Medicine; Visit Provider Psychiatry & Neurology Neurology | DX: R06.83 Snoring (principal); G47.19 Other hypersomnia | CPT/HCPCS: 99202 ==

== ENCOUNTER 2024-07-17 09:15 | Outpatient (AMB) | payer OTHER, SELFPAY ==
[2024-07-17 09:16] VITALS: BP 128/80; PULSE 85; BMI 37.4
--- NOTE | 2024-07-17 09:16 | A.OFFVIS_ITS ---
Vital Signs 07/17/24 09:16 Height 5 ft 11 in Weight 268 lb 8.368 oz BMI 37.4 BP 128/80 Blood Pressure Location Lt brachial Position Sitting Pulse 85 Intake Visit Reasons: Colonoscopy screening Intake Note: New patient in office today for colonoscopy screening. CC: Patient denies having any GI symptoms or concerns and she's never had a colonoscopy done before. 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 She is referred by Roscoe Mansfield. PMX MO Morbid obesity-BMI 37 High cholesterol Impaired fasting glucose Migraines Hypertension Depression * SURGICAL HISTORY Pt denies * ALLERGIES Penicillin - hives Sulfa Erythromycin - N/V * Mitrionics LABS: Laboratory Tests 12/31/23 05/08/24 07:32 08:50 WBC 6.5 Hgb 13.2 Hct 40.5 Plt Count 372 Estimated GFR > 60 Total Bilirubin 0.6 AST 20 ALT 17 Alkaline Phosphatase 93 TSH 3.70 Free T4 0.96 TODAY'S VISIT This is her first colonoscopy She has ? MO with sleep study next week and no other respiratory problems and no cardiac problems She is naive to anesthesia and sedation. NO ID problems. There is no known FHX of crc or polyps. [facility] Medical History Community acquired pneumonia Laboratory exam ordered as part of routine general medical examination Adult general medical exam History of gestational diabetes Elevated liver enzymes Bacteria in urine Screening for cervical cancer Screening for colon cancer Breast cancer screening by mammogram Elevated TSH Neoplasm of uncertain behavior of skin Abnormal liver ultrasound Excessive daytime sleepiness Snoring Hypertension Migraines Surgical History No pertinent past surgical history Family History Mother Breast cancer Father Cancer of blood vessel COVID Alzheimer disease Social History Household Members: Children Housing: House Do you presently have visiting nurse or other home services: No 75 years or older and lives alone: No Alcohol intake: never Patient Tobacco Use Status: Never used Tobacco e-Cigarette/Vaping Use: Never Used Second Hand Smoke Exposure: No Special bennett needs: No service: No Current occupational status: employed 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 Cognitive needs: No Hearing needs: No Vision needs: Yes (Patient wears glasses.) Review of Systems Const Denies fatigue, Denies fever(s), Denies night sweats, Denies poor appetite and Denies weight loss Eyes Details: glasses Reports requires corrective lenses ENT Reports Normal hearing present, Denies dental pain, Denies dysphagia, Denies hearing loss, Denies mouth pain, Denies odynophagia, Denies throat swelling, Denies tongue swelling and Reports other (Dentition adequate) Card Reports no additional complaints Resp Reports no additional complaints GI Details: Denies abdominal pain, Denies melena, Denies bloating, Denies hematochezia, Denies constipation, Denies GI cramping, Denies dysphagia, Denies excessive flatus, Denies early satiety, Denies heartburn, Denies diarrhea, Denies nausea, Denies odynophagia, Denies vomiting and Denies hematemesis Skin/Breast Denies pruritus, Denies lesions, Denies rash and Denies jaundice Neuro Reports Normal hearing present and Denies Abnormal speech present Endo Denies fatigue Aller/Immun Denies throat swelling and Denies tongue swelling Physical Exam Const General: cooperative, no acute distress, well developed and well groomed Nutritional Appearance: well nourished and obese morbidly obese Orientation/consciousness: oriented to person, oriented to place and oriented to time Limitations: No language barrier HEENT Head: Yes normocephalic and Yes atraumatic Eyes General: appearance normal, both eyes and all related structures Pupils: Equal, round and reactive pupils present Neck Neck: Yes normal visual inspection and Yes no lymphadenopathy Thyroid: Thyroid normal Resp Effort & Inspection: normal respiratory effort and able to speak in complete sentences Auscultation: clear to auscultation bilaterally Cardio Rate: regular rate Rhythm: regular rhythm Heart sounds: Normal, physiologic split S2 sound present Peripheral pulses: radial pulses present and posterior tibial pulses present GI Inspection: No distended, Yes Abdominal panniculus present and Yes obesity Palpation (GI): Soft to palpation, nontender, no guarding, not rigid and No hepatosplenomegaly present Percussion: Yes normal to percussion Auscultation: normal bowel sounds Rectal Exam - Female: deferred Skin General skin exam: no rashes or lesions noted, turgor normal, skin not dry, no jaundice, No spider nevi and no striae Rashes: no rashes Nails: normal Neuro General: oriented to person, oriented to place and oriented to time Cranial nerves: Yes Equal, round and reactive pupils present and Yes Normal hearing present Speech: No Abnormal speech present Extrem General: Yes normal to inspection, No clubbing, No cyanosis and No edema Psych Appearance: grossly normal and well kempt Mental Status: mental status grossly normal Speech and movement: Normal speech and movement present Affect: normal affect Attitude: cooperative Thought process: Normal thought process present and not confabulating Thought content: Normal thought content present Insight: Good insight present (Psych) Judgement: Good judgement present (Psych) Assessment & Plan Assessment & Plan (1) Pre-op examination: Code(s): Z01.818 - Encounter for other preprocedural examination Category: Medical (2) Sleep apnea: Code(s): G47.30 - Sleep apnea, unspecified Category: Medical (3) Obesity (BMI 35.0-39.9 without comorbidity): Code(s): E66.9 - Obesity, unspecified Category: Medical Plan This is her first colonoscopy She has ? MO with sleep study next week and no other respiratory problems and no cardiac problems She is naive to anesthesia and sedation. NO ID problems. There is no known FHX of crc or polyps. Orders: Orders Colonoscopy - GI Use Only Today E66.9 - Obesity, unspecified, G47.30 - Sleep apnea, unspecified, Z01.818 - Encounter for other preprocedural examination Medications: New peg 3350-electrolytes 236-22.74-6.74 -5.86 gram (Golytely) until fecal effluent is clear; do not exceed a total volume of 2,000 mL 240 mL PO Q10M 1 day 4,000 mL 0RF Z12.11 - Encounter for screening for malignant neoplasm of colon bisacodyl (Dulcolax (bisacodyl)) 10 mg (2 x 5 mg) PO BEDTIME 2 days 4 tabs 0RF Coding Level of Care Code New Pt Level 3 (66195) Diagnoses Pre-op examination Z01.818 Sleep apnea G47.30 Obesity (BMI 35.0-39.9 without comorbidity) E66.9
== END 2024-07-17 09:55 | disposition home or self-care (01) ==
PROVIDERS: PCP Family Medicine; Visit Provider Nurse Practitioner
DX: Z01.818 Encounter for other preprocedural examination (principal); Z12.11 Encounter for screening for malignant neoplasm of colon; G47.30 Sleep apnea, unspecified
CPT/HCPCS: 99202

== ENCOUNTER → 2024-07-17 09:15 | Outpatient (BNVA) | payer OTHER, SELFPAY | PROVIDERS: PCP Family Medicine; Visit Provider Nurse Practitioner | DX: Z01.818 Encounter for other preprocedural examination (principal); E66.9 Obesity, unspecified; G47.30 Sleep apnea, unspecified; Z68.37 Body mass index [BMI] 37.0-37.9, adult | CPT/HCPCS: 99202 ==

== ENCOUNTER → 2024-07-22 10:54 | Outpatient (REF) | payer OTHER, SELFPAY | LOC: HO.SL 10:54 | PROVIDERS: PCP Family Medicine; Visit Provider Psychiatry & Neurology Neurology | DX: G47.30 Sleep apnea, unspecified (principal); R06.83 Snoring; G47.19 Other hypersomnia | CPT/HCPCS: 95806 ==

== ENCOUNTER → 2024-07-22 11:03 | Outpatient (BNV) | payer OTHER, SELFPAY | PROVIDERS: PCP Family Medicine; Visit Provider Psychiatry & Neurology Neurology | DX: G47.33 Obstructive sleep apnea (adult) (pediatric) (principal) | CPT/HCPCS: 95806 ==

== ENCOUNTER 2024-10-07 10:34 | Outpatient (REF) | payer OTHER, SELFPAY ==
[2024-10-15 07:55] LABS: HPV Genotype 16 Negative (Negative); HPV Genotype 18 Negative (Negative); HPV High Risk Negative (Negative)
== END 2024-10-07 10:35 | disposition home or self-care (01) ==
LOC: HO.LNP 10:34
PROVIDERS: PCP Family Medicine; Visit Provider Advanced Practice Midwife
DX: Z01.419 Encounter for gynecological examination (general) (routine) without abnormal findings (principal); R87.610 Atypical squamous cells of undetermined significance on cytologic smear of cervix (ASC-US); Z11.51 Encounter for screening for human papillomavirus (HPV)
CPT/HCPCS: 87626; 88175; 99386; 99459

== ENCOUNTER 2024-10-07 10:34 | Outpatient (AMB) | payer OTHER, SELFPAY ==
--- NOTE | 2024-10-07 10:35 | A.OFFVIS_ITS ---
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 She is doing well with trading specialist concerns: Reports regular menses up until September when she experienced a cycle about 20 days apart. Currently not sexually active. Denies any vaginal dryness or irritation. STI testing offered; she declined. Attempting to eat a healthy diet with calcium and vitamin D and stays active with some exercise. Last pap smear; >5yrs. ago, abnormal. Last mammogram; 2023. Colonoscopy is UTD. Denies any family history of ovarian or colon cancer. FH breast cancer-mom. COUNTS INCLUDE 234 BEDS AT THE [facility] Medical History Community acquired pneumonia Laboratory exam ordered as part of routine general medical examination Adult general medical exam History of gestational diabetes Elevated liver enzymes Bacteria in urine Screening for cervical cancer Screening for colon cancer Breast cancer screening by mammogram Elevated TSH Neoplasm of uncertain behavior of skin Abnormal liver ultrasound Excessive daytime sleepiness Snoring Hypertension Migraines Surgical History No pertinent past surgical history Family History Mother Breast cancer Father Cancer of blood vessel COVID Alzheimer disease Social History Household Members: Children Housing: House Do you presently have visiting nurse or other home services: No 75 years or older and lives alone: No Alcohol intake: former Patient Tobacco Use Status: Never used Tobacco e-Cigarette/Vaping Use: Never Used Second Hand Smoke Exposure: No Special bennett needs: No service: No Current occupational status: employed 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 Cognitive needs: No Hearing needs: No Vision needs: Yes (Patient wears glasses.) Female Reproductive History Menstrual Duration of menses: 3-5 days Date of last menstrual period: 09/26/24 Total pregnancies: 2 Full term: 1 Premature: 2 Number of Living Children: 3 Multiple births: 1 History of abnormal pap smear: Yes (hx abn pap about 5 yrs) Date of Mammogram: 04/01/24 (Birad 1) Review of Systems Const All systems reviewed & are unremarkable except as noted in HPI and below Reports as per HPI Eyes Reports no additional complaints ENT Reports no additional complaints Card Reports no additional complaints Resp Reports no additional complaints GI Reports as per HPI and Reports no additional complaints Reports as per HPI Musc Reports no additional complaints Skin/Breast Reports as per HPI Neuro Reports no additional complaints Psych Reports no additional complaints Endo Reports no additional complaints Riely/Lymph Reports no additional complaints Aller/Immun Reports no additional complaints Physical Exam Vital Signs: Last Vital Signs BP 120/80 10/07/24 10:36 BMI result Body Mass Index 37.2 Const General: cooperative, healthy appearing, no acute distress, well developed and alert Orientation/consciousness: patient oriented x3 HEENT Head: Yes normal to inspection Eyes General: appearance normal, both eyes and all related structures Neck Neck: Yes normal visual inspection Thyroid: Thyroid normal Chest Chest palpation & inspection: normal inspection of the chest and other (no puckering, dimpling, peau de orange, retraction, discharge, masses) Breast/axilla inspection: normal inspection of the breasts Breast/axilla palpation: normal palpation of the breasts Resp Effort & Inspection: normal respiratory effort GI Inspection: Yes normal to inspection Palpation (GI): Soft to palpation Rectal Exam - Female: deferred General: Yes bladder normal to palpation External Female Exam: normal external appearance and normal appearance of the urethra Speculum Exam - Vagina: normal appearance of the vagina, normal palpation and normal vaginal discharge Speculum Exam - Cervix: normal appearance of the cervix, normal palpation and Other cervical findings present (bled slightly w/pap) Bimanual exam- vagina & uterus: normal bimanual exam, normal palpation, uterine size normal, bladder normal to palpation, normal palpation and non-tender Bimanual Exam- Adnexa, other: no masses Skin Other: multiple nevi, skin tags General skin exam: no rashes or lesions noted Rashes: no rashes Neuro General: patient oriented x3 Cognition (Neuro): normal cognition Extrem General: Yes normal to inspection Psych Attitude: cooperative Thought process: Normal thought process present Assessment & Plan Assessment & Plan (1) Encounter for well woman exam with routine gynecological exam: Code(s): Z01.419 - Encounter for gynecological examination (general) (routine) without abnormal findings Category: Medical Plan Discussed: Current recommendations for pap smears per ASCCP guidelines. PAp obtained. Release [facility] PAP records. Dermatology info provided. Breast awareness, periodic self breast exams and yearly mammogram. Maintain a healthy lifestyle, well balanced diet including Calcium 1,200 mg and Vitamin D 600 IU daily, and routine exercise. Menopause verses perimenopause. Menopause is definitive of 1 year of no menses or 12 months in succession. Report any abnormal uterine bleeding in example prolonged episodes, or short intervals less than 24 days. Patient verbalizes understanding and agrees to the plan of care. She was given opportunity to ask questions and all questions were answered to the best of my ability. RTO in 1 year for annual trading specialist exam. This note is constructed using voice recognition software. While every effort has been made to ensure accuracy, business services clerk errors may have been included. Orders: Orders HPV High risk Today Z01.419 - Encounter for gynecological examination (general) (routine) without abnormal findings Pap Smear Today Z01.419 - Encounter for gynecological examination (general) (routine) without abnormal findings Coding Level of Care Code New Pt Prev Care 40-64y(58725) Diagnoses Encounter for well woman exam with routine gynecological exam Z01.419
[2024-10-07 10:36] VITALS: BP 120/80; BMI 37.2
== END 2024-10-07 11:25 | disposition home or self-care (01) ==
LOC: HO.HWS 10:34
PROVIDERS: PCP Family Medicine; Visit Provider Advanced Practice Midwife
DX: Z01.419 Encounter for gynecological examination (general) (routine) without abnormal findings (principal)
CPT/HCPCS: 99386; 99459

== ENCOUNTER 2024-12-10 09:23 | Outpatient (AMB) | payer OTHER, SELFPAY ==
--- NOTE | 2024-12-10 09:27 | A.OFFVIS_ITS ---
Vital Signs 12/10/24 09:28 Height 5 ft 11 in Weight 265 lb 8 oz BMI 37.0 BP 124/82 Blood Pressure Location Lt brachial Position Sitting Pulse 69 Pulse Source Pulse Oximeter Pulse Oximetry (%) 99 Oxygen Delivery Method Room Air Intake Visit Reasons: 6m follow up MO Intake Note: Patient presents follow up MO. HST in chart(AHI-9, supine AHI-22/hr, TONIE-74%. Trial APAP 5-20cm water) Copmpliance in chart(90/90 days, >=4hrs-90days, Average usage 8hr 19min, Med press- 6.8, Med leaks-2.9, AHI-0.7). Accompanied by: Self / Same As Patient Allergies Penicillins [PCN] Allergy (Verified 12/10/24 09:30) Hives Sulfa (Sulfonamide Antibiotics) Allergy (Verified 12/10/24 09:30) Hives erythromycin base Adverse Reaction (Mild, Verified 12/10/24 09:30) Vomiting HPI Comments Details: 49 year old female comes in for a f/u visit of MO. Jul 2024 HST c/w MO AHI 9.1, suppine AHI 23, OAI is 4.8, was started on cpap 5- [id number] MO compliance report 09/04/2024 - 12/02/2024 Total usage is 90/90 days, and >4 hours is 90 days 8hours and 18min Press are 6.8 leaks 2.9 and AHI is 0.7 / hr. Today she is doing well, sleep has improved since starting CPAP therapy. She goes to bed at 9pm and wakes up at 5am, with 1 to zero bathroom breaks, her night time arousals for the bathroom has significantly decreased. She used to wake up 2-3 times a night for the bathroom. She works remotely from home and spends >8 hours on the computer we discussed eye hygiene, taking breaks every hour, and using blue light reducing technologies to prevent headaches. She used to be active however now she notices as she is busier with work, she tends to have less time for step therapy, and we discussed self care. Her mood tends to fluctuate, with the onset of menopause and she is more irritable, has hot flashes and easily fatigued. She denies morning headaches and RLS symptoms. She washes her mask, hoses, changes filters, and fills reservoir with water as needed. Labs are pending: b12, TSH, Vit D, and Ferritin. [facility] Medical History Community acquired pneumonia Laboratory exam ordered as part of routine general medical examination Adult general medical exam History of gestational diabetes Elevated liver enzymes Bacteria in urine Screening for cervical cancer Screening for colon cancer Breast cancer screening by mammogram Elevated TSH Neoplasm of uncertain behavior of skin Abnormal liver ultrasound Excessive daytime sleepiness Snoring Hypertension Migraines Surgical History No pertinent past surgical history Family History Mother Breast cancer Father Cancer of blood vessel COVID Alzheimer disease Social History Household Members: Children Housing: House Do you presently have visiting nurse or other home services: No 75 years or older and lives alone: No Alcohol intake: former Patient Tobacco Use Status: Never used Tobacco e-Cigarette/Vaping Use: Never Used Second Hand Smoke Exposure: No Special bennett needs: No service: No Current occupational status: employed 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 Cognitive needs: No Hearing needs: No Vision needs: Yes (Patient wears glasses.) Physical Exam Vital Signs: Last Vital Signs Pulse 69 12/10/24 09:28 BP 124/82 12/10/24 09:28 Pulse Ox 99 12/10/24 09:28 Oxygen Delivery Method Room Air 12/10/24 09:28 BMI result Body Mass Index 37.0 Const General: cooperative, healthy appearing and comfortable Nutritional Appearance: obese Orientation/consciousness: patient oriented x3 Eyes Pupils: Equal, round and reactive pupils present Neuro General: patient oriented x3, gait normal, tone normal and moves all extremities Cranial nerves: Yes Facial sensation intact/muscles of mastication intact, Yes Equal, round and reactive pupils present, Yes Bilaterally intact EOM present, Yes Normal facial strength present, Yes Midline tongue present, Yes Symmetric p alate elevation present, Yes Ability to bilaterally rotate head present and Yes Ability to bilaterally elevate shoulders present Cognition (Neuro): normal cognition Gait exam (Neuro): Normal gait present Motor exam (neuro): 5/5 motor strength present throughout and Normal motor muscle tone present throughout Results Reviewed Results Reviewed: Jul 2024 HST c/w MO AHI 9.1, suppine AHI 23, OAI is 4.8, was started on cpap 5- [id number] MO compliance report 09/04/2024 - 12/02/2024 Total usage is 90/90 days, and >4 hours is 90 days 8hours and 18min Press are 6.8 leaks 2.9 and AHI is 0.7 / hr. Labs are pending: b12, TSH, Vit D, and Ferritin. Assessment & Plan Assessment & Plan (1) MO (obstructive sleep apnea): Code(s): G47.33 - Obstructive sleep apnea (adult) (pediatric) Category: Medical (2) Obesity (BMI 35.0-39.9 without comorbidity): Code(s): E66.9 - Obesity, unspecified Category: Medical Plan MO continue cpap 5-20cm H20 as patient continues to have improved sleep, decreased nocturia. Obesity, continue practicing good self care with 15min to 30 min or walking or step therapy daily, drinking 60% of water for hydration and optimizing diet to improve weight. Patient Instructions: Sleep Hygiene provided: set a scheduled bedtime and wake time to help regulate the circadian rhythm and balance the release of pituitary hormones. Sleep in a dark room, temperatures below 68 degrees, and no devices n bed. Limit caffeinated products 6 hours prior to bed, and limit fluids 2-4 hours prior to bed. Gentle night yoga, diffusing essential oils, and playing soft music can be relaxing. Coding Level of Care Code Est Pt Level 4 (55079) Diagnoses MO (obstructive sleep apnea) G47.33 Obesity (BMI 35.0-39.9 without comorbidity) E66.9 Time Spent (min) 20
[2024-12-10 09:28] VITALS: BP 124/82; PULSE 69; O2SAT 99; BMI 37.0
== END 2024-12-10 09:58 | disposition home or self-care (01) ==
LOC: HO.HSMS 09:24
PROVIDERS: PCP Family Medicine; Visit Provider Physician Assistant Medical
DX: G47.33 Obstructive sleep apnea (adult) (pediatric) (principal); E66.9 Obesity, unspecified
CPT/HCPCS: 99214

== ENCOUNTER → 2024-12-10 09:23 | Outpatient (BNVA) | payer OTHER, SELFPAY | PROVIDERS: PCP Family Medicine; Visit Provider Physician Assistant Medical | DX: G47.33 Obstructive sleep apnea (adult) (pediatric) (principal); E66.9 Obesity, unspecified; Z68.37 Body mass index [BMI] 37.0-37.9, adult; Z99.89 Dependence on other enabling machines and devices | CPT/HCPCS: 99212 ==

== ENCOUNTER 2025-01-28 12:54 | Outpatient (REF) | payer OTHER, SELFPAY ==
--- NOTE | ~2025-01-28 | XR_ITS ---
EXAMINATION: XR CHEST CLINICAL INFORMATION: I10 - Essential (primary) hypertension COMPARISON: November 02, 2023. TECHNIQUE: 2 views of the chest were obtained. FINDINGS: No consolidation, pleural effusion or pneumothorax. Cardiomediastinal silhouette size is normal. Multilevel thoracic and upper lumbar spondylosis. XR/XR chest 2V IMPRESSION: No acute airspace disease. Electronically signed by: Adan Jean-Baptiste MD 01/28/2025 02:50 PM EDT
== END 2025-01-28 12:55 | disposition home or self-care (01) ==
LOC: HO.XRAY 12:54
PROVIDERS: PCP Family Medicine; Visit Provider Physician Assistant
DX: I10 Essential (primary) hypertension (principal); M25.50 Pain in unspecified joint; M79.10 Myalgia, unspecified site; R53.83 Other fatigue; R07.89 Other chest pain
CPT/HCPCS: 71046; 99212

== ENCOUNTER 2025-01-28 12:54 | Outpatient (AMB) | payer OTHER, SELFPAY ==
--- NOTE | 2025-01-28 12:59 | MHC.PC.OV ---
Vital Signs 01/28/25 13:02 Height 5 ft 11 in Weight 271 lb 8 oz BMI 37.9 BP 134/80 Blood Pressure Location Lt brachial Position Sitting Respiration 14 Pulse 77 Pulse Source Pulse Oximeter Temp 98.8 F Temp Source Oral Intake Visit Reasons: FAtigue , body aches Intake Note: Fatigue and body aches. Sxs one week . Elevated blood pressure. Pet Sitter Required: No Allergies Penicillins (PCN) Allergy (Verified 01/28/25 13:01) Hives Sulfa (Sulfonamide Antibiotics) Allergy (Verified 01/28/25 13:01) Hives erythromycin base Adverse Reaction (Mild, Verified 01/28/25 13:01) Vomiting Tobacco use date assessed: 01/28/25 Dental Screening Dental Screen Date: 01/28/25 Did you have a dental visit in the last 12 months?: Yes Did you have a dental problem in the last 6 months where you did not have access to dental care?: No Was dental information given to patient?: Patient has dentist HPI FAtigue , body aches HPI Details Patient is a 49-year-old female with a significant past medical history of hypertension, impaired fasting glucose, hyperlipidemia who presents today for an acute problem visit. -states that she started to feel sick about a week ago with feeling fatigued, body aches, joints pain. She states it is just weird for her because she feels like she woke up 1 day and had these body aches as she normally never has. She states that if she gets up and moves around it feels like her ankles, knees, back and hips are just uncomfortable. At times it feels like her neck and shoulders are painful. A few times she has noticed a chest tightness but it does not feel like of pain just this overall achiness. She states that she never associated this cardiac but felt more possible musculoskeletal. There is no wheezing or shortness on breath. No palpitations with it. No trauma. No recent changes to diet or prescriptions. She has not started any new supplements. No recent travel. No contacts who has been noticeably sick. No swelling, rashes, fever or chills. No tick bites. She states that it just feels like she excessively exercised but she has not done that. She says that she is relatively sedentary Saturday through Saturday and on the weekends she does a lot of [email or web address] work and she can tell a difference between muscle overuse and this. She has not noticed any urinary symptoms. No headache, sinus pain or pressure. No swelling in her neck. No sore throat no nausea, vomiting or diarrhea. No leg swelling. She does endorse an elevated blood pressure reading during the week once that was 150/80. A couple times she has tried ibuprofen with minimal improvement. She does have 3 children, 2 14-year-old boys and 1 20-year-old daughter. CV: Blood pressure today in the office is 134/80. She is currently on amlodipine 5 mg daily. [facility] Medical History Community acquired pneumonia Laboratory exam ordered as part of routine general medical examination Adult general medical exam History of gestational diabetes Elevated liver enzymes Bacteria in urine Screening for cervical cancer Screening for colon cancer Breast cancer screening by mammogram Elevated TSH Neoplasm of uncertain behavior of skin Abnormal liver ultrasound Excessive daytime sleepiness Snoring Hypertension Migraines Surgical History No pertinent past surgical history Family History Mother Breast cancer Father Cancer of blood vessel COVID Alzheimer disease Social History Household Members: Children Housing: House Do you presently have visiting nurse or other home services: No Alcohol intake: former Patient Tobacco Use Status: Never used Tobacco e-Cigarette/Vaping Use: Never Used Second Hand Smoke Exposure: No Special bennett needs: No service: No Current occupational status: employed 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 1. Little interest or pleasure in doing things: not at all 2. Feeling down, depressed, or hopeless: not at all 3. Trouble falling or staying asleep, or sleeping too much: not at all 4. Feeling tired or having little energy: more than half the days 5. Poor appetite or overeating: not at all 6. Feeling bad about yourself - or that you are a failure or have let yourself or your family down: not at all 7. Trouble concentrating on things, such as reading the newspaper or watching television: not at all 8. Moving or speaking so slowly that other people could have noticed. Or the opposite - being so fidgety or restless that you have been moving around a lot more than usual: not at all 9. Thoughts that you would be better off or of hurting yourself in some way: not at all Total score: 2 Source: Developed by Drs. Flaco Alegria, Lois Golden, Pilo Escalona and colleagues, with an educational sandra from [employer]. Thrive Questionnaire Date Thrive assessed: 01/28/25 I am a: Patient What is your living situation today?: I have a steady place to live Within the past 12 months, did the food you bought not last and you didn't have the money to get more?: Never true Within the past 12 months, did you worry whether your food would run out before you got money to buy more?: Never true Do you have trouble paying for medicines?: No Do you have trouble getting transportation to medical appointments?: No Do you have trouble paying your heating and electricity bill?: No Do you have trouble taking care of your child, family member or friend?: No Do you have trouble with day-to-day activities such as bathing, preparing meals, shopping, managing finances, etc.?: No Are you currently unemployed and looking for a job?: No Are you interested in more education?: No Please select the resources that you would like help with: None Currently or been in a relationship where the following occur: No concerns reported THRIVE Score: 0 AUDIT C Alcohol Use Questionnaire (AUDIT-C) 1. How often do you have a drink containing alcohol?: Never 3. How often do you have six or more drinks on one occasion?: Never Total Score: 0 ZOHAIB-7 AMB Questionnaire ZOHAIB-7 Date ZOHAIB - 7 assessed: 12/24/23 Feeling nervous, anxious, or on edge: 0 = Not at all Not being able to stop or control worryin = Not at all Worrying too much about different things: 0 = Not at all Trouble relaxin = Not at all Being so restless that it is hard to sit still: 0 = Not at all Becoming easily annoyed or irritable: 1 = Several days Feeling afraid as if something awful might happen: 0 = Not at all Total ZOHAIB-7 score (0-4 normal; 5-9 mild; 10-14 moderate; 15-21 severe): 1 Source: Developed by Drs. Flaco Alegria, Lois Golden, Pilo Escalona and colleagues, with an educational sandra from [employer]. Physical exam (Primary Care) Tobacco/Smoking Status: Tobacco use Status Tobacco use date assessed 02/27/24 05/27/24 09:16 Patient Tobacco Use Status Never used Tobacco 10/07/24 10:41 e-Cigarette/Vaping Use Never Used 10/07/24 10:41 Thrive Assessment: Date of Thrive Assessment Date Thrive assessed 01/28/25 01/28/25 10:39 Currently or been in a relationship where the following occur: No concerns reported Const Orientation/consciousness: patient oriented x3 HENMT Ears: hearing grossly normal bilaterally Neck Thyroid: Thyroid normal Lymphatic: no lymphadenopathy noted Resp Auscultation: clear to auscultation bilaterally Cardio Rate: regular rate Rhythm: regular rhythm Heart sounds: S1 normal heart sound present and S2 normal heart sound present GI Inspection: Yes normal to inspection Palpation (GI): Soft to palpation and Other GI palpation findings present (nontender, no cva tenderness) Auscultation: normoactive bowel sounds Rectal Exam - Female: deferred Skin General skin exam: no rashes or lesions noted Neuro General: patient oriented x3, gait normal and no focal motor deficits Coding Level of Care Code Est Pt Level 4 (09608) Complex EM visit Add On G2211 Diagnoses Hypertension I10 Polyarthralgia M25.50 Myalgia M79.10 Fatigue R53.83 Atypical chest pain R07.89 Assessment & Plan Assessment & Plan (1) Hypertension: Code(s): I10 - Essential (primary) hypertension Category: Medical Plan: Continue current regimen (2) Polyarthralgia: Code(s): M25.50 - Pain in unspecified joint Category: Medical Plan: Labs ordered today. We will follow up pending test results (3) Myalgia: Code(s): M79.10 - Myalgia, unspecified site Category: Medical Plan: As above. No abnormalities noted on physical exam (4) Fatigue: Code(s): R53.83 - Other fatigue Category: Medical Plan: Blood work ordered. We will follow up pending labs. (5) Atypical chest pain: Code(s): R07.89 - Other chest pain Plan: Currently asymptomatic. Very short lasting. No associated symptoms. EKG today in the office is normal sinus reason at a rate of 73 beats per minute with PACs. EKG interpreted myself and Dr. Aguilar. Warning signs of chest pain reviewed Plan We discussed trying supportive measures such as OTC analgesics and short term follow up if no improvement or sooner if anything worsens or changes. Orders: Orders Magnesium Today I10 - Essential (primary) hypertension, M25.50 - Pain in unspecified joint, M79.10 - Myalgia, unspecified site Vitamin B12 and Folate Today I10 - Essential (primary) hypertension, M25.50 - Pain in unspecified joint, M79.10 - Myalgia, unspecified site Rheumatoid Factor Today I10 - Essential (primary) hypertension, M25.50 - Pain in unspecified joint, M79.10 - Myalgia, unspecified site UA CC w/rflx Micro + Cult Today I10 - Essential (primary) hypertension, M25.50 - Pain in unspecified joint, M79.10 - Myalgia, unspecified site, Z13.220 - Encounter for screening for lipoid disorders AMB EKG-In Office Today I10 - Essential (primary) hypertension, M25.50 - Pain in unspecified joint, M79.10 - Myalgia, unspecified site Parvovirus B19, Human, IgG/IgM Today M25.50 - Pain in unspecified joint, M79.10 - Myalgia, unspecified site, R53.83 - Other fatigue Comprehensive Met. Panel Today I10 - Essential (primary) hypertension, M25.50 - Pain in unspecified joint, M79.10 - Myalgia, unspecified site TSH reflex Free T4 Today I10 - Essential (primary) hypertension, M25.50 - Pain in unspecified joint, M79.10 - Myalgia, unspecified site Hemoglobin A1c Today I10 - Essential (primary) hypertension, M25.50 - Pain in unspecified joint, M79.10 - Myalgia, unspecified site, R73.01 - Impaired fasting glucose Complete Blood Count Auto Diff Today I10 - Essential (primary) hypertension, M25.50 - Pain in unspecified joint, M79.10 - Myalgia, unspecified site Lyme IgG/IgM w/reflex to WB Today I10 - Essential (primary) hypertension, M25.50 - Pain in unspecified joint, M79.10 - Myalgia, unspecified site FREDDY Reflex Titer and Pattern Today I10 - Essential (primary) hypertension, M25.50 - Pain in unspecified joint, M79.10 - Myalgia, unspecified site Erythrocyte Sedimentation Rate Today I10 - Essential (primary) hypertension, M25.50 - Pain in unspecified joint, M79.10 - Myalgia, unspecified site XR chest 2V Today I10 - Essential (primary) hypertension, M25.50 - Pain in unspecified joint, M79.10 - Myalgia, unspecified site Creatine Kinase Total Today M25.50 - Pain in unspecified joint, M79.10 - Myalgia, unspecified site, R53.83 - Other fatigue
[2025-01-28 13:02] VITALS: BP 134/80; PULSE 77; RESP 14; TEMP 37.1; BMI 37.9
== END 2025-01-28 13:32 | disposition home or self-care (01) ==
LOC: HO.HMCFM 12:55
PROVIDERS: PCP Family Medicine; Visit Provider Physician Assistant
DX: I10 Essential (primary) hypertension (principal); M25.50 Pain in unspecified joint; M79.10 Myalgia, unspecified site; R53.83 Other fatigue; R07.89 Other chest pain

== ENCOUNTER 2025-01-28 13:35 | Outpatient (REF) | payer OTHER, SELFPAY ==
[2025-01-28 17:32] LABS: MANUAL DIFF FLAG NO
[2025-01-28 17:46] LABS: Hemoglobin A1C 131.1643 umol/L; Total Hemoglobin (HGBA1C) 3363.6128 umol/L
[2025-01-28 17:50] LABS: Appearance Urine Clear; Glucose Urine UA Negative (Negative); PH 5.5 (5.0-9.0); Specific Gravity - Urine <= 1.005 (1.005-1.025)
[2025-01-28 17:54] LABS: Hematocrit 38.3 % (37.0-47.0); Hemoglobin 12.6 g/dl (12.0-16.0); Imm Gran Abs Auto 0.02 X10*3/uL (0.00-0.03); Imm Gran Pct Auto 0.2 % (0.0-0.4); Lymphocytes Absolute Auto 2.2 X10*3/uL (1.2-4.9); Mean Corpuscular HGB Conc 32.9 g/dl (31.0-35.0); Mean Corpuscular Hemoglobin 28.3 pg (27.0-33.0); Mean Corpuscular Volume 85.9 fL (80.0-98.0); NRBC Abs Auto 0.000 X10*3/uL (0.0-0.012); NRBC Pct Auto 0.0 /100WBC (0.0-0.2); Platelet Count 339 X10*3/uL (160-400); Red Blood Count 4.46 X10*6/uL (4.20-5.50); White Blood Count 8.6 X10*3/uL (4.8-10.8)
[2025-01-28 18:00] LABS: Alanine Aminotransferase 20 U/L (0-31); Albumin Level 4.7 g/dL (3.5-5.0); Alkaline Phosphatase 99 U/L (39-117); Anion Gap 13 (12-20); Aspartate Amino Transferase 20 U/L (5-31); Blood Urea Nitrogen 10 mg/dL (9-16); Calcium 9.0 mg/dL (8.4-10.2); Carbon Dioxide 25 mmol/L (22-29); Chloride 105 mmol/L (96-108); Estimated Glomerular Filt Rate > 60; Magnesium 2.1 mg/dL (1.6-2.6); Potassium 3.9 mmol/L (3.3-5.1); Sodium 139 mmol/L (135-145); Total Protein 7.1 g/dL (6.5-8.0)
[2025-01-28 18:24] LABS: Folate 12.8 ng/mL (> or = 4.0); Vitamin B12 497 pg/mL (200-900)
[2025-01-29 10:23] LABS: Lyme Abs Screen <0.90 index
[2025-02-01 17:27] LABS: Anti Nuclear Antibody Screen NEGATIVE (NEGATIVE)
== END 2025-01-28 13:36 | disposition home or self-care (01) ==
LOC: HO.WFDLDS 13:35
PROVIDERS: Visit Provider Physician Assistant
DX: Z13.220 Encounter for screening for lipoid disorders (principal); Z01.84 Encounter for antibody response examination; I10 Essential (primary) hypertension; R73.01 Impaired fasting glucose; M79.10 Myalgia, unspecified site; M25.50 Pain in unspecified joint; R53.83 Other fatigue
CPT/HCPCS: 36415; 80053; 81003; 82550; 82607; 82746; 83036; 83735; 84443; 85025; 85652; 86038; 86431; 86617; 86618; 86747

== ENCOUNTER → 2025-01-28 14:22 | Outpatient (BNV) | payer OTHER, SELFPAY | PROVIDERS: PCP Family Medicine; Visit Provider Radiology Diagnostic Radiology | DX: I10 Essential (primary) hypertension (principal) | CPT/HCPCS: 71046 ==

== ENCOUNTER 2025-03-22 07:30 | Outpatient (REF) | payer OTHER, SELFPAY ==
[2025-03-22 10:12] LABS: Appearance Urine Cloudy; Glucose Urine UA Negative (Negative); PH 6.5 (5.0-9.0); Specific Gravity - Urine 1.010 (1.005-1.025); UMIC TRIGGER UA YES
[2025-03-22 10:28] LABS: Alanine Aminotransferase 22 U/L (0-31); Albumin Level 4.7 g/dL (3.5-5.0); Alkaline Phosphatase 101 U/L (39-117); Anion Gap 13 (12-20); Aspartate Amino Transferase 22 U/L (5-31); Blood Urea Nitrogen 12 mg/dL (9-16); Calcium 9.0 mg/dL (8.4-10.2); Carbon Dioxide 27 mmol/L (22-29); Chloride 105 mmol/L (96-108); Cholesterol 209 mg/dL (<200); Estimated Glomerular Filt Rate > 60; HDL Cholesterol 55 mg/dL (>40); Potassium 4.7 mmol/L (3.3-5.1); Sodium 140 mmol/L (135-145); Total Protein 7.2 g/dL (6.5-8.0); Triglycerides 92 mg/dL (<150)
[2025-03-22 10:31] LABS: Hemoglobin A1C 132.8027 umol/L; Total Hemoglobin (HGBA1C) 3456.3869 umol/L
== END 2025-03-22 07:31 | disposition home or self-care (01) ==
LOC: HO.HMGCLDS 07:30
PROVIDERS: PCP Family Medicine; Visit Provider Family Medicine
DX: Z00.00 Encounter for general adult medical examination without abnormal findings (principal); E78.00 Pure hypercholesterolemia, unspecified; R73.01 Impaired fasting glucose; R82.71 Bacteriuria
CPT/HCPCS: 36415; 80053; 80061; 81001; 83036

== ENCOUNTER 2025-03-31 13:43 | Outpatient (AMB) | payer OTHER, SELFPAY ==
--- NOTE | 2025-03-31 13:40 | MHC.PC.OV ---
Intake Visit Reasons: Lab results Intake Note: Chanelle presents via telehealth for a lab review. Allergies Penicillins (PCN) Allergy (Verified 03/31/25 13:41) Hives Sulfa (Sulfonamide Antibiotics) Allergy (Verified 03/31/25 13:41) Hives erythromycin base Adverse Reaction (Mild, Verified 03/31/25 13:41) Vomiting Tobacco use date assessed: 03/31/25 Dental Screening Dental Screen Date: 03/31/25 Did you have a dental visit in the last 12 months?: No Did you have a dental problem in the last 6 months where you did not have access to dental care?: No Was dental information given to patient?: Patient declined HPI Lab results HPI Details 49 y/o female presents to f/u labs. Labs drawn 03/22/25. Reviewed labs with pt. A1c 5.7%. Triglyceride 92. TC 209. LDL 136. HDL 55. 1+ urine bacteria seen. PFSH Medical History Community acquired pneumonia Laboratory exam ordered as part of routine general medical examination Adult general medical exam History of gestational diabetes Elevated liver enzymes Bacteria in urine Screening for cervical cancer Screening for colon cancer Breast cancer screening by mammogram Elevated TSH Neoplasm of uncertain behavior of skin Abnormal liver ultrasound Excessive daytime sleepiness Snoring Hypertension Migraines Surgical History No pertinent past surgical history Family History Mother Breast cancer Father Cancer of blood vessel COVID Alzheimer disease Social History (Updated 03/31/25 @ 13:42 by Cammie Menard CMA) Household Members: Children Housing: House Do you presently have visiting nurse or other home services: No 75 years or older and lives alone: No Alcohol intake: former Patient Tobacco Use Status: Never used Tobacco e-Cigarette/Vaping Use: Never Used Second Hand Smoke Exposure: No Special bennett needs: No service: No Current occupational status: employed 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 Cognitive needs: No Hearing needs: No Vision needs: Yes (Patient wears glasses.) Questionnaire Thrive Questionnaire Date Thrive assessed: 01/28/25 I am a: Patient What is your living situation today?: I have a steady place to live Within the past 12 months, did the food you bought not last and you didn't have the money to get more?: Never true Within the past 12 months, did you worry whether your food would run out before you got money to buy more?: Never true Do you have trouble paying for medicines?: No Do you have trouble getting transportation to medical appointments?: No Do you have trouble paying your heating and electricity bill?: No Do you have trouble taking care of your child, family member or friend?: No Do you have trouble with day-to-day activities such as bathing, preparing meals, shopping, managing finances, etc.?: No Are you currently unemployed and looking for a job?: No Are you interested in more education?: No Please select the resources that you would like help with: None Currently or been in a relationship where the following occur: No concerns reported THRIVE Score: 0 AUDIT C Alcohol Use Questionnaire (AUDIT-C) 3. How often do you have six or more drinks on one occasion?: Never Total Score: 0 ZOHAIB-7 AMB Questionnaire ZOHAIB-7 Date ZOHAIB - 7 assessed: 12/24/23 Source: Developed by Drs. Flaco Alegria, Lois Golden, Pilo Escalona and colleagues, with an educational sandra from [employer]. Review of Systems Const Denies chills, Denies fatigue, Denies fever(s), Denies headache(s) and Denies weakness ENT Denies dizziness and Denies headache(s) Card Denies dyspnea Resp Denies cough, Denies dyspnea, Denies wheezing and Denies other (shortness of breath) Musc Denies numbness and Denies tingling Neuro Denies dizziness, Denies headache(s), Denies numbness, Denies tingling and Denies weakness Psych Denies anxiety and Denies depression Endo Denies fatigue Aller/Immun Denies wheezing Physical exam (Primary Care) Tobacco/Smoking Status: Tobacco use Status Tobacco use date assessed 03/31/25 03/31/25 13:42 Patient Tobacco Use Status Never used Tobacco 03/31/25 13:42 e-Cigarette/Vaping Use Never Used 03/31/25 13:42 Thrive Assessment: Date of Thrive Assessment Date Thrive assessed 01/28/25 03/31/25 13:42 Currently or been in a relationship where the following occur: No concerns reported Telehealth Telehealth Telehealth Platform: Telephone Location of provider rendering services: practice address Location of patient: address on file Patient Identification confirmed using: Name, : Yes Telehealth method: voice only Patient verbally consented to treatment: Yes Patient verbally consented to billing insurance company: Yes Patient informed of any privacy concerns related to visit: Yes Minutes spent on Phone/Video with Pt.: 8 Coding Level of Care Code Tele Est Pt Level 2 (56994) Diagnoses Pre-diabetes R73.03 Elevated LDL cholesterol level E78.00 Asymptomatic bacteriuria R82.71 Assessment & Plan Assessment & Plan (1) Pre-diabetes: Code(s): R73.03 - Prediabetes Category: Medical Plan: A1c 5.7% Encouraged a diet low in sugars and starches Encouraged exercise and weight loss Will continue to monitor (2) Elevated LDL cholesterol level: Code(s): E78.00 - Pure hypercholesterolemia, unspecified Category: Medical Plan: LDL cholesterol is too high Encouraged a diet low in saturated fats and cholesterol as well as diet and exercise with weight loss We can recheck at her next visit (3) Asymptomatic bacteriuria: Code(s): R82.71 - Bacteriuria Category: Medical Plan: Mildly elevated leukocyte esterase in her urine as well as some bacteria Asymptomatic Increase hydration We can recheck prior to next visit Orders: Orders UA CC w/rflx Micro + Cult Today R82.71 - Bacteriuria, Z00.00 - Encounter for general adult medical examination without abnormal findings Hemoglobin A1c Today R73.01 - Impaired fasting glucose, R82.71 - Bacteriuria Basic Metabolic Panel Fasting Today E78.00 - Pure hypercholesterolemia, unspecified
== END 2025-03-31 17:05 | disposition home or self-care (01) ==
LOC: HO.HMCFM 13:43
PROVIDERS: PCP Family Medicine; Visit Provider Family Medicine
DX: R73.03 Prediabetes (principal); E78.00 Pure hypercholesterolemia, unspecified; R82.71 Bacteriuria

== ENCOUNTER 2025-05-12 10:32 | Outpatient (REF) | payer OTHER, SELFPAY | END 2025-05-12 10:33 | disposition home or self-care (01) | LOC: HO.MAMMO 10:32 | PROVIDERS: PCP Family Medicine; Visit Provider Family Medicine | DX: Z12.31 Encounter for screening mammogram for malignant neoplasm of breast (principal) | CPT/HCPCS: 77063; 77067 ==

== ENCOUNTER → 2025-05-12 10:45 | Outpatient (BNV) | payer OTHER, SELFPAY | PROVIDERS: PCP Family Medicine; Visit Provider Internal Medicine | DX: Z12.31 Encounter for screening mammogram for malignant neoplasm of breast (principal) | CPT/HCPCS: 77063; 77067 ==

== ENCOUNTER 2025-05-14 14:48 | Outpatient (AMB) | payer OTHER, SELFPAY ==
--- NOTE | 2025-05-14 14:54 | MHC.PC.OV ---
Vital Signs 05/14/25 14:59 Height 5 ft 11 in Weight 272 lb 8 oz BMI 38.0 BP 120/90 H Blood Pressure Location Lt brachial Position Sitting Respiration 16 Pulse 71 Pulse Source Pulse Oximeter Temp 98.6 F Temp Source Oral Pulse Oximetry (%) 99 Oxygen Delivery Method Room Air Intake Visit Reasons: Physical 15 minutes Intake Note: patient is scheduled for physical with pcp Snuff Drier Required: No Is last menstrual period known: Yes (irregular) Allergies Penicillins (PCN) Allergy (Verified 05/14/25 14:55) Hives Sulfa (Sulfonamide Antibiotics) Allergy (Verified 05/14/25 14:55) Hives erythromycin base Adverse Reaction (Mild, Verified 05/14/25 14:55) Vomiting Tobacco use date assessed: 05/14/25 Dental Screening Dental Screen Date: 05/14/25 Did you have a dental visit in the last 12 months?: No Did you have a dental problem in the last 6 months where you did not have access to dental care?: No Was dental information given to patient?: No [facility] Medical History (Updated 05/14/25 @ 15:21 by Roscoe Mansfield MD) Breast cancer screening by mammogram Screening for colon cancer Screening for cervical cancer Adult general medical exam Community acquired pneumonia Laboratory exam ordered as part of routine general medical examination History of gestational diabetes Elevated liver enzymes Bacteria in urine Elevated TSH Neoplasm of uncertain behavior of skin Abnormal liver ultrasound Excessive daytime sleepiness Snoring Hypertension Migraines Surgical History No pertinent past surgical history Family History Mother Breast cancer Father Cancer of blood vessel COVID Alzheimer disease Social History Household Members: Children Housing: House Do you presently have visiting nurse or other home services: No 75 years or older and lives alone: No Alcohol intake: former Patient Tobacco Use Status: Never used Tobacco e-Cigarette/Vaping Use: Never Used Second Hand Smoke Exposure: No Special bennett needs: No service: No Current occupational status: employed 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 1. Little interest or pleasure in doing things: not at all 2. Feeling down, depressed, or hopeless: not at all 3. Trouble falling or staying asleep, or sleeping too much: several days 4. Feeling tired or having little energy: more than half the days 5. Poor appetite or overeating: not at all 6. Feeling bad about yourself - or that you are a failure or have let yourself or your family down: not at all 7. Trouble concentrating on things, such as reading the newspaper or watching television: not at all 8. Moving or speaking so slowly that other people could have noticed. Or the opposite - being so fidgety or restless that you have been moving around a lot more than usual: not at all 9. Thoughts that you would be better off or of hurting yourself in some way: not at all Total score: 3 Depression Screening Interpretation: Negative Depression Screening Done: Yes 08992 - PHQ-9 Billing: Yes Source: Developed by Drs. Flaco Alegria, Lois Golden, Pilo Escalona and colleagues, with an educational sandra from [employer]. Thrive Questionnaire Date Thrive assessed: 05/14/25 I am a: Patient What is your living situation today?: I have a steady place to live Within the past 12 months, did the food you bought not last and you didn't have the money to get more?: Never true Within the past 12 months, did you worry whether your food would run out before you got money to buy more?: Never true Do you have trouble paying for medicines?: No Do you have trouble getting transportation to medical appointments?: No Do you have trouble paying your heating and electricity bill?: No Do you have trouble taking care of your child, family member or friend?: No Do you have trouble with day-to-day activities such as bathing, preparing meals, shopping, managing finances, etc.?: No Are you currently unemployed and looking for a job?: No Are you interested in more education?: No Please select the resources that you would like help with: None Currently or been in a relationship where the following occur: No concerns reported THRIVE Score: 0 AUDIT C Alcohol Use Questionnaire (AUDIT-C) 2. How many drinks containing alcohol do you have on a typical day when you are drinking?: 1 or 2 Total Score: 0 ZOHAIB-7 AMB Questionnaire ZOHAIB-7 Date ZOHAIB - 7 assessed: 05/14/25 Feeling nervous, anxious, or on edge: 0 = Not at all Not being able to stop or control worryin = Not at all Worrying too much about different things: 0 = Not at all Trouble relaxin = Not at all Being so restless that it is hard to sit still: 0 = Not at all Becoming easily annoyed or irritable: 1 = Several days Feeling afraid as if something awful might happen: 0 = Not at all Total ZOHAIB-7 score (0-4 normal; 5-9 mild; 10-14 moderate; 15-21 severe): 1 Source: Developed by Drs. Flaco Alegria, Lois Golden, Pilo Escalona and colleagues, with an educational sandra from [employer]. ZOHAIB-7 Assessment Billing ZOHAIB-7 Assessment Tool: ZOHAIB-7 Assessment 56865 Physical exam (Primary Care) Vital Signs: Last Vital Signs Temp 98.6 F 05/14/25 14:59 Pulse 71 05/14/25 14:59 Resp 16 05/14/25 14:59 BP 120/90 H 05/14/25 14:59 Pulse Ox 99 05/14/25 14:59 Oxygen Delivery Method Room Air 05/14/25 14:59 BMI result Body Mass Index 38.0 Tobacco/Smoking Status: Tobacco use Status Tobacco use date assessed 05/14/25 05/14/25 15:02 Patient Tobacco Use Status Never used Tobacco 05/14/25 15:02 e-Cigarette/Vaping Use Never Used 05/14/25 15:02 PHQ-9: PHQ-9 Score PHQ-9: Total score 3 05/14/25 15:02 Depression Screening Interpretation: Negative Thrive Assessment: Date of Thrive Assessment Date Thrive assessed 05/14/25 05/14/25 15:02 Currently or been in a relationship where the following occur: No concerns reported Coding Level of Care Code Est Pt Prev Care 40-64y(67733) Diagnoses Adult general medical exam Z00.00 Hypertension I10 Elevated LDL cholesterol level E78.00 Breast cancer screening by mammogram Z12.31 Screening for cervical cancer Z12.4 Screening for colon cancer Z12.11 Additional Codes ZOHAIB-7 Assessment Billing - ZOHAIB-7 Assessment Tool: ZOHAIB-7 Assessment 70880 ([id number]) PHQ-9 - 17748 - PHQ-9 Billing: Yes ([id number]) Assessment & Plan Assessment & Plan (1) Adult general medical exam: Code(s): Z00.00 - Encounter for general adult medical examination without abnormal findings Category: Medical Plan: 50-year-old female presents for complete physical exam Exam within normal limits Encouraged healthy diet with active lifestyle and plenty of exercise (2) Hypertension: Code(s): I10 - Essential (primary) hypertension Category: Medical Plan: Diastolic blood pressure is a little elevated today. Goal is less than 140/90 No change to her amlodipine today. Continue working on diet exercise and weight loss. Watch salt and sodium We did discuss that if her blood pressure is elevated again at her next visit we would likely adjust her medication. (3) Elevated LDL cholesterol level: Code(s): E78.00 - Pure hypercholesterolemia, unspecified Category: Medical Plan: LDL cholesterol was too high at recent set of labs Encouraged lifestyle changes Will recheck prior to her next visit (4) Breast cancer screening by mammogram: Code(s): Z12.31 - Encounter for screening mammogram for malignant neoplasm of breast Category: Medical Plan: Patient just had her mammogram this week. Results are pending (5) Screening for cervical cancer: Code(s): Z12.4 - Encounter for screening for malignant neoplasm of cervix Category: Medical Plan: Pap smear in October was normal Up-to-date Follow-up with obstetrics gynecology md as recommended (6) Screening for colon cancer: Code(s): Z12.11 - Encounter for screening for malignant neoplasm of colon Category: Medical Plan: Patient was referred to Gastroenterology She says they have not scheduled her colonoscopy yet. Will ask the office to check on status of this test Orders: Orders Lipid Panel Today E78.00 - Pure hypercholesterolemia, unspecified, Z00.00 - Encounter for general adult medical examination without abnormal findings Comprehensive Grant. Panel Fast Today E78.00 - Pure hypercholesterolemia, unspecified, Z00.00 - Encounter for general adult medical examination without abnormal findings Hemoglobin A1c Today R73.01 - Impaired fasting glucose, R73.03 - Prediabetes
[2025-05-14 14:59] VITALS: BP 120/90; PULSE 71; RESP 16; TEMP 37; O2SAT 99; BMI 38.0
== END 2025-05-14 15:20 | disposition home or self-care (01) ==
LOC: HO.HMCFM 14:49
PROVIDERS: PCP Family Medicine; Visit Provider Family Medicine
DX: Z00.00 Encounter for general adult medical examination without abnormal findings (principal); I10 Essential (primary) hypertension; E78.00 Pure hypercholesterolemia, unspecified; Z12.31 Encounter for screening mammogram for malignant neoplasm of breast; Z12.4 Encounter for screening for malignant neoplasm of cervix; Z12.11 Encounter for screening for malignant neoplasm of colon

== ENCOUNTER → 2025-05-14 14:48 | Outpatient (BNVA) | payer OTHER, SELFPAY | PROVIDERS: PCP Family Medicine; Visit Provider Family Medicine | DX: Z00.00 Encounter for general adult medical examination without abnormal findings (principal); I10 Essential (primary) hypertension; E78.00 Pure hypercholesterolemia, unspecified; R73.01 Impaired fasting glucose; R73.03 Prediabetes | CPT/HCPCS: 96127; 99396 ==

== ENCOUNTER 2025-06-11 09:40 | Outpatient (AMB) | payer OTHER, SELFPAY ==
[2025-06-11 10:11] VITALS: BP 110/72; PULSE 68; O2SAT 98; BMI 37.9
--- NOTE | 2025-06-11 10:11 | A.OFFVIS_ITS ---
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 MO compliance report 06/04/2025 - 03/04/2025 reviewed with pt today. Total usage is 90/90 days, and >4 hours is 90 days 8 hours and 18min Press are 6.8 leaks 2.9 and AHI is 0.7 / hr. She washes her mask, rinses hoses, changes filters, and fills reservoirs with water. She states she is doing well since starting cpap therapy, sleep has improved and feels more rested in the morning. She goes to bed at 9pm and wakes up at 5am, with 1 to zero bathroom breaks, her night time arousals for the bathroom has significantly decreased.She works remotely from home and spends >8 hours on the computer we discussed eye hygiene, taking breaks every hour, and using blue light reducing screens to prevent headaches. She used to be active however now she notices as she is busier with work, she tends to have less time for step therapy class. Her BMI is elevated today. Her mood fluctuates with the onset of menopause and she is more irritable due to vasomotor symptoms. She denies morning headaches, dizziness, vertigo, gait and blance difficulties, parasomnias, flailing thrashing, abnormal sleep behaviors, and RLS symptoms. Labs are pending: B12, TSH, Vit D, and Ferritin. [facility] Medical History Breast cancer screening by mammogram Screening for colon cancer Screening for cervical cancer Adult general medical exam Community acquired pneumonia Laboratory exam ordered as part of routine general medical examination History of gestational diabetes Elevated liver enzymes Bacteria in urine Elevated TSH Neoplasm of uncertain behavior of skin Abnormal liver ultrasound Excessive daytime sleepiness Snoring Hypertension Migraines Surgical History No pertinent past surgical history Family History Mother Breast cancer Father Cancer of blood vessel COVID Alzheimer disease Social History Household Members: Children Housing: House Do you presently have visiting nurse or other home services: No 75 years or older and lives alone: No Alcohol intake: former Patient Tobacco Use Status: Never used Tobacco e-Cigarette/Vaping Use: Never Used Second Hand Smoke Exposure: No Special bennett needs: No service: No Current occupational status: employed 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 Cognitive needs: No Hearing needs: No Vision needs: Yes (Patient wears glasses.) Physical Exam Vital Signs: Last Vital Signs Pulse 68 06/11/25 10:11 BP 110/72 06/11/25 10:11 Pulse Ox 98 06/11/25 10:11 Oxygen Delivery Method Room Air 06/11/25 10:11 BMI result Body Mass Index 37.9 Const General: cooperative, healthy appearing and comfortable Nutritional Appearance: obese Orientation/consciousness: patient oriented x3 HEENT Face and sinus: Yes face symmetric Teeth and gingiva: other (mallampti score is 4) Eyes Pupils: Equal, round and reactive pupils present Neck Neck: Yes full ROM Resp Effort & Inspection: normal respiratory effort and able to speak in complete sentences Neuro General: patient oriented x3, gait normal, tone normal and moves all extremities Cranial nerves: Yes Facial sensation intact/muscles of mastication intact, Yes Equal, round and reactive pupils present, Yes Bilaterally intact EOM present, Yes Normal facial strength present, Yes Midline tongue present, Yes Symmetric palate elevation present, Yes Ability to bilaterally rotate head present and Yes Ability to bilaterally elevate shoulders present Cognition (Neuro): normal cognition Gait exam (Neuro): Normal gait present Motor exam (neuro): 5/5 motor strength present throughout and Normal motor muscle tone present throughout Deep tendon reflexes (DTR's): Right triceps reflex intensity grade: 2+, Left triceps reflex intensity grade: 2+, Rt Biceps (C5, C6): 2+, Left biceps reflex intensity grade: 2+, Right brachioradialis reflex intensity grade: 2+, Left brachioradialis reflex intensity grade: 2+, Right patellar reflex intensity grade: 2+ and Left patellar reflex intensity grade: 2+ Psych Appearance: grossly normal Mental Status: mental status grossly normal Affect: normal affect Attitude: cooperative Thought process: Normal thought process present Results Reviewed Results Reviewed: MO compliance report 06/04/2025 - 03/04/2025 reviewed with pt today. Total usage is 90/90 days, and >4 hours is 90 days 8 hours and 18min Press are 6.8 leaks 2.9 and AHI is 0.7 / hr. She washes her mask, rinses hoses, changes filters, and fills reservoirs with water. Assessment & Plan Assessment & Plan (1) MO (obstructive sleep apnea): Code(s): G47.33 - Obstructive sleep apnea (adult) (pediatric) Category: Medical (2) Obesity (BMI 35.0-39.9 without comorbidity): Code(s): E66.9 - Obesity, unspecified Category: Medical Plan MO continue cpap 5-20cm H20 as patient continues to have improved sleep, decreased nocturia. Obesity, continue practicing good self care with 15min to 30 min or walking or step therapy daily, drinking 60% of water for hydration and optimizing diet to improve weight. labs complete to r/o deficiencies. F/U in 6months as neeeded. Coding Level of Care Code Est Pt Level 4 (67036) Diagnoses MO (obstructive sleep apnea) G47.33 Obesity (BMI 35.0-39.9 without comorbidity) E66.9
== END 2025-06-11 11:16 | disposition home or self-care (01) ==
LOC: HO.HSMS 09:41
PROVIDERS: PCP Family Medicine; Visit Provider Physician Assistant Medical
DX: G47.33 Obstructive sleep apnea (adult) (pediatric) (principal); E66.9 Obesity, unspecified
CPT/HCPCS: 99214

== ENCOUNTER → 2025-06-11 09:40 | Outpatient (BNVA) | payer OTHER, SELFPAY | PROVIDERS: PCP Family Medicine; Visit Provider Physician Assistant Medical | DX: G47.33 Obstructive sleep apnea (adult) (pediatric) (principal); E66.9 Obesity, unspecified; Z68.37 Body mass index [BMI] 37.0-37.9, adult; Z99.89 Dependence on other enabling machines and devices | CPT/HCPCS: 99212 ==

== ENCOUNTER 2025-07-06 09:58 | Outpatient (AMB) | payer OTHER, SELFPAY ==
--- NOTE | 2025-07-06 10:07 | AM.OFFWIN_ITS ---
Intake Vital Signs 07/06/25 10:13 07/06/25 10:15 Height 5 ft 11 in Weight 271 lb BMI 37.8 BP 154/87 H 156/80 H Blood Pressure Location Lt brachial Rt brachial Position Sitting Sitting Respiration 14 Pulse 95 Pulse Source Pulse Oximeter Temp 98.7 F Temp Source Oral Pulse Oximetry (%) 99 Oxygen Delivery Method Room Air Intake Visit Reasons: EP High BP, headaches Intake Note: Patient presents c/o elevated BP, tension headache x1 week. Patient Tobacco Use Status: Never used Tobacco Allergies Penicillins (PCN) Allergy (Verified 07/06/25 10:14) Hives Sulfa (Sulfonamide Antibiotics) Allergy (Verified 07/06/25 10:14) Hives erythromycin base Adverse Reaction (Mild, Verified 07/06/25 10:14) Vomiting HPI HPI Comments History of Present Illness Details She presents to office with high BP and hedaches She has ongoing hx of HTN controlled with 5mg Amlodipine Shehas been on the amlodipine x 1-2 years. She said sometimes elevated at MD while on med Approx 1 week of headaches; frontal in forehead Headaches has been an everyday occurance. Occurs at end of day Has been taking medicine as prescribed, takes Amlodipine at dinner time BPs have been 1402-150/ 80s-90s Has had these headaches in past and similar symptoms at HTN onset No vision changes, dizziness, confusion, CP, SOB No numbness, tinglign weakness She had congestion prior to Deangelo but resolved No fever, chills, sinus pressure, ear pain or sore throat Called Shyla's office and unable to be seen for a few weeks and recommended coming in today [facility] Medical History Breast cancer screening by mammogram Screening for colon cancer Screening for cervical cancer Adult general medical exam Community acquired pneumonia Laboratory exam ordered as part of routine general medical examination History of gestational diabetes Elevated liver enzymes Bacteria in urine Elevated TSH Neoplasm of uncertain behavior of skin Abnormal liver ultrasound Excessive daytime sleepiness Snoring Hypertension Migraines Surgical History No pertinent past surgical history Family History Mother Breast cancer Father Cancer of blood vessel COVID Alzheimer disease Social History Household Members: Children Housing: House Do you presently have visiting nurse or other home services: No 75 years or older and lives alone: No Alcohol intake: former Patient Tobacco Use Status: Never used Tobacco e-Cigarette/Vaping Use: Never Used Second Hand Smoke Exposure: No Special bennett needs: No service: No Current occupational status: employed 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 Speaking full sentences. Skin: Warm dry throughout Eye: EOMI, PERRL HENT: Airway patent. Uvula midline. No pharyngeal erythema or edema. No CHILD WATCH ATTENDANT. Bilateral canals clear. TM non-erythematous, non-bulging. No TM perforation or hemotympanum noted. Respiratory: CTA bilaterally. No wheezes, rales or rhonchi Cardiac: RRR. No murmur MSK: Full ROM extremities. Neurology: Alert. No aphasia or facial droop. Gait without abnormality Psych: Good mood and affect Vital Signs: Last Vital Signs Temp 98.7 F 07/06/25 10:13 Pulse 95 07/06/25 10:13 Resp 14 07/06/25 10:13 BP 156/80 H 07/06/25 10:15 Pulse Ox 99 07/06/25 10:13 Oxygen Delivery Method Room Air 07/06/25 10:13 BMI result Body Mass Index 37.8 Assessment & Plan Assessment & Plan (1) Headache: Code(s): R51.9 - Headache, unspecified Qualifiers: Headache type: new daily persistent Qualified Code(s): G44.52 - New daily persistent headache (NDPH) Plan: No neuro deficit (2) Hypertension: Code(s): I10 - Essential (primary) hypertension Qualifiers: Hypertension type: unspecified Qualified Code(s): I10 - Essential (primary) hypertension Plan: Patient seen and evaluated. Message sent to PCP Will increase from 5 to 10mg Amlodipine daily Given side effect knowledge Discussed daily BP chart; given paper Close follow up PCP Monitor for dizziness, confusion, CP, SOB, weakness go to ER if it occurs Monitor for leg edema and call with any questions Patient gave verbal understanding and had no additional questions or concerns at time of discharge All questions answered Medications: New amlodipine 10 mg PO DAILY 14 tabs 0RF Coding Level of Care Code Est Pt Level 3 (92775) Diagnoses New daily persistent headache G44.52 Headache type: new daily persistent Hypertension, unspecified type I10 Hypertension type: unspecified
[2025-07-06 10:13] VITALS: BP 154/87; PULSE 95; RESP 14; TEMP 37.1; O2SAT 99; BMI 37.8
[2025-07-06 10:15] VITALS: BP 156/80
== END 2025-07-06 11:18 | disposition home or self-care (01) ==
PROVIDERS: PCP Family Medicine; Visit Provider Physician Assistant
DX: G44.52 New daily persistent headache (NDPH) (principal); I10 Essential (primary) hypertension

== ENCOUNTER → 2025-07-06 09:58 | Outpatient (BNVA) | payer OTHER, SELFPAY | PROVIDERS: PCP Family Medicine; Visit Provider Physician Assistant | DX: G44.52 New daily persistent headache (NDPH) (principal); I10 Essential (primary) hypertension; Z79.899 Other long term (current) drug therapy | CPT/HCPCS: 99212 ==